=== PATIENT | male | born 1965 ===

== ENCOUNTER 2017-05-30 14:55 | Inpatient (IN) | payer OTHER ==
[2017-05-30 15:08] VITALS: BMI 36.1
[2017-05-30] MEDS ORDERED: Sodium Chloride 0.9% 1,000 ML IV STA (15:14)
--- NOTE | 2017-05-30 15:35 | ED PDOC ---
Arrival/HPI - General Chief Complaint: Abdominal Pain Time Seen by Provider: 05/30/17 15:14 Historian: Patient - History of Present Illness Narrative History of Present Illness (Text): 05/30/17 15:32 51-year-old male present sudden onset of sharp Stabbing left-sided abdominal pain radiating to the back. Patient states the pain started at 9 AM is associated with nausea no vomiting. Denies diarrhea. Denies urinary symptoms. No medications have been taken for pain at home. Patient states he has a history of diverticulitis but symptoms are different than his prior flares. Patient denies diarrhea or constipation. Denies fevers or chills. No chest pain or shortness of breath. No other complaints Time/Duration: Other (9am) Symptom Onset: Sudden Symptom Course: Unchanged Quality: Stabbing Severity Level: Moderate Past Medical History - Provider Review Nursing Documentation Reviewed: Yes - Travel History Have you recently traveled outside [place] w/in the past 3 mons?: No - Infectious Disease Hx of Infectious Diseases: None - Tetanus Immunization Tetanus Immunization: Unknown - Cardiac Hx Cardiac Disorders: Yes - Pulmonary Hx Respiratory Disorders: Yes Hx Chronic Obstructive Pulmonary Disease (COPD): Yes - Neurological Hx Neurological Disorder: No - HEENT Hx HEENT Disorder: Yes Other/Comment: glasses - Renal Hx Renal Disorder: No - Endocrine/Metabolic Hx Endocrine Disorders: No - Hematological/Oncological Hx Blood Disorders: No - Integumentary Hx Dermatological Disorder: Yes Hx Psoriasis: Yes (buttocks) - Musculoskeletal/Rheumatological Hx Musculoskeletal Disorders: No - Gastrointestinal Hx Gastrointestinal Disorders: Yes Hx Diverticulitis: Yes - Genitourinary/Gynecological Hx Genitourinary Disorders: No - Psychiatric Hx Psychophysiologic Disorder: No Hx Substance Use: No - Surgical History Other/Comment: R leg surgery with screws and rods placed - Anesthesia Hx Anesthesia: Yes Hx Anesthesia Reactions: No Family/Social History - Physician Review Nursing Documentation Reviewed: Yes Family/Social History: Unknown Family HX Smoking Status: Heavy Smoker > 10 Cigarettes Daily Hx Alcohol Use: Yes Frequency of alcohol use: Socially Hx Substance Use: No Allergies/Home Meds Allergies/Adverse Reactions: Allergies No Known Allergies Allergy (Verified 05/30/17 15:07) Home Medications: Home Meds Medication Instructions Recorded Confirmed Atorvastatin [Lipitor] 20 mg PO DAILY 05/30/17 05/30/17 Budesonide/Formoterol Fumarate 1 puff IH DAILY 05/30/17 05/30/17 [Symbicort 160-4.5 Mcg Inhaler] Calcipotriene/Betamethasone 1 appful TD DAILY 05/30/17 05/30/17 [Taclonex Ointment] Finasteride [Propecia] 1 mg PO DAILY 05/30/17 05/30/17 Fluticasone Nasal [Flonase] 1 spray NS DAILY 05/30/17 05/30/17 Montelukast [Singulair] 10 mg PO DAILY 05/30/17 05/30/17 Omeprazole Magnesium [Prilosec Otc] 20 mg PO DAILY 05/30/17 05/30/17 Tacrolimus [Protopic] 1 appful TD BID 05/30/17 05/30/17 Triamcinolone Acetonide 0.1% 1 appful TD BID 05/30/17 05/30/17 [Kenalog 0.1% CREAM] Review of Systems - Review of Systems Constitutional: absent: Fatigue, Fevers Respiratory: absent: SOB, Cough Cardiovascular: absent: Chest Pain, Palpitations Gastrointestinal: Abdominal Pain, Nausea. absent: Constipation, Diarrhea, Vomiting Genitourinary Male: absent: Dysuria, Frequency, Hematuria, Urinary Output Changes Musculoskeletal: Back Pain. absent: Arthralgias, Neck Pain Skin: absent: Rash, Pruritis Neurological: absent: Headache, Dizziness Psychiatric: absent: Anxiety, Depression Physical Exam Vital Signs Reviewed: Yes Vital Signs Temp Pulse Resp BP Pulse Ox 05/30/17 18:20 79 18 142/79 97 05/30/17 17:30 81 19 144/87 97 05/30/17 17:00 79 18 142/91 H 100 05/30/17 15:14 98.0 F 81 18 146/100 H 100 Temperature: Afebrile Blood Pressure: Hypertensive Pulse: Regular Respiratory Rate: Normal Appearance: Positive for: Well-Appearing, Non-Toxic, Comfortable Pain Distress: None Mental Status: Positive for: Alert and Oriented X 3 - Systems Exam Head: Present: Atraumatic Neck: Present: Normal Range of Motion Respiratory/Chest: Present: Clear to Auscultation, Good Air Exchange. No: Respiratory Distress, Accessory Muscle Use Cardiovascular: Present: Regular Rate and Rhythm. No: Tachycardic Abdomen: Present: Tenderness (+ left sided llq tenderness. ), Normal Bowel Sounds. No: Distention, Rebound, Guarding Back: Present: Normal Inspection. No: CVA Tenderness, Midline Tenderness, Paraspinal Tenderness Upper Extremity: Present: Normal ROM Lower Extremity: Present: Normal ROM Neurological: Present: GCS=15, Speech Normal Skin: Present: Warm, Dry, Normal Color. No: Rashes Psychiatric: Present: Alert, Oriented x 3 Medical Decision Making ED Course and Treatment: 05/30/17 15:34 Patient is nontoxic well appearing with stable vital signs presenting with left sided abdominal pain and back pain. CBC: wnl CMP: elevated lfts Lipase: wnl Urinalysis: + blood Patient reassessment: after toradol patient feeling slightly better; CAT scan: FINDINGS: LOWER THORAX: No visible consolidation, pleural effusion, or pneumothorax. Punctate calcified granulomas, right lower lobe. Partially imaged small pericardial effusion. Moderate-sized hiatal hernia. LIVER: Hypoattenuation of the liver compatible with hepatic steatosis. Borderline hepatomegaly. GALLBLADDER AND BILE DUCTS: Unremarkable. PANCREAS: Fatty atrophy of the pancreas. SPLEEN: Unremarkable. ADRENALS: Unremarkable. KIDNEYS AND URETERS: 6 mm left renal calculus with mild fullness of the left renal collecting system. The kidneys enhance symmetrically. VASCULATURE: No aortic aneurysm. BOWEL: Stomach is nondistended. Lack of oral contrast limits evaluation for bowel pathology. Bowel loops appear within normal limits of caliber without evidence of obstruction. Diverticulosis with associated wall thickening of the rectosigmoid colon, may reflect diverticulitis. APPENDIX: The appendix appears within normal limits of caliber. No secondary signs of acute appendicitis. PERITONEUM: No significant free fluid. No definite free air. LYMPH NODES: No bulky adenopathy identified. BLADDER: Unremarkable. REPRODUCTIVE: Unremarkable. BONES: Degenerative changes. Vacuum disc phenomenon at L5-S1. OTHER FINDINGS: 2.2 cm fat containing umbilical hernia. IMPRESSION: Diverticulosis with associated wall thickening of the rectosigmoid colon, may reflect diverticulitis. 6 mm left renal calculus with mild fullness of the left renal collecting system. Hypoattenuation of the liver compatible with hepatic steatosis. Borderline hepatomegaly. Partially imaged small pericardial effusion. Moderate-sized hiatal hernia. Fat containing umbilical hernia. pt reassessment; pain returned; morphine given. Discussed all results with patient in depth cipro and flagyl started iV. case discussed with dr. Villegas; accepts admission to med/surg for diverticulitis with intractable pain. case discussed with biomedical repair technician dr. greenwood. Impression: diverticulitis, abdominal pain, kidney stone admit to med/surg - Lab Interpretations Lab Results: 05/30/17 16:10 05/30/17 16:10 Lab Results 05/30/17 17:12: Urine Color Yellow, Urine Appearance Slight-cloudy, Urine pH 6.0 , Ur Specific Blanca 1.020, Urine Protein Trace H, Urine Glucose (UA) Negative , Urine Ketones Negative, Urine Blood Large H, Urine Nitrate Negative, Urine Bilirubin Negative, Urine Urobilinogen 0.2, Ur Leukocyte Esterase Negative, Urine RBC 10 - 15, Urine WBC 0 - 2, Ur Epithelial Cells 0 - 2, Urine Bacteria Few 05/30/17 16:10: WBC 10.3, RBC 5.30, Hgb 17.1, Hct 47.6, MCV 89.8, MCH 32.3, MCHC 35.9, RDW 13.0, Plt Count 217, MPV 10.2, Gran % 79.7 H, Lymph % (Auto) 15.0 L, Edgar % (Auto) 4.5, Eos % (Auto) 0.6 L, Baso % (Auto) 0.2, Gran # 8.22 H , Lymph # 1.5, Edgar # 0.5, Eos # 0.1, Baso # 0.02 05/30/17 16:10: Sodium 142, Potassium 4.5, Chloride 106, Carbon Dioxide 25, Anion Gap 16, BUN 17, Creatinine 1.1, Est GFR ( Amer) > 60, Est GFR (Non- Af Amer) > 60, Random Glucose 107, Calcium 10.7 H, Total Bilirubin 1.0, AST 87 H , ALT 171 H, Alkaline Phosphatase 108, Total Protein 7.6, Albumin 4.6, Globulin 3.0, Albumin/Globulin Ratio 1.5, Lipase 87 - RAD Interpretation Radiology Orders: 05/30/17 16:00 ABD & PELVIS IV CONTRAST ONLY [CT] Stat 05/30/17 16:36 CHEST PORTABLE [RAD] Stat - Medication Orders Current Medication Orders: Heparin Sodium (Porcine) (Heparin) 5,000 units SC Q8H STEVE PRN Reason: Protocol Hydromorphone HCl (Dilaudid) 0.5 mg IVP Q4H PRN PRN Reason: Pain, moderate (4-7) Ciprofloxacin (Cipro 400mg/200ml Dsw) 400 mg in 200 mls @ 133.3 mls/hr IVPB STAT STA PRN Reason: Protocol Stop: 05/30/17 19:40 Metronidazole (Flagyl) 500 mg in 100 mls @ 100 mls/hr IVPB Q8 STEVE PRN Reason: Protocol Cefepime HCl 0.5 gm/ Sodium (Chloride) 100 mls @ 100 mls/hr IVPB Q8H STEVE PRN Reason: Protocol Stop: 06/02/17 19:59 Sodium Chloride (Sodium Chloride 0.9%) 1,000 mls @ 100 mls/hr IV .Q10H STEVE Stop: 06/03/17 22:59 Levalbuterol HCl (Xopenex) 0.63 mg IH [id number] STEVE Ondansetron HCl (Zofran Inj) 4 mg IVP Q4H PRN PRN Reason: Nausea/Vomiting Pantoprazole Sodium (Protonix Inj) 40 mg IVP DAILY STEVE Discontinued Medications Sodium Chloride (Sodium Chloride 0.9%) 1,000 mls @ 999 mls/hr IV .Q1H1M STA Stop: 05/30/17 16:14 Last Admin: 05/30/17 16:16 Dose: 999 mls/hr eMAR Start Stop Document 05/30/17 16:16 OCS (Rec: 05/30/17 16:16 [id number]) Intravenous Solution Start Date 05/30/17 Start Time 16:16 Metronidazole (Flagyl) 500 mg in 100 mls @ 100 mls/hr IVPB STAT STA PRN Reason: Protocol Stop: 05/30/17 19:10 Last Admin: 05/30/17 18:41 Dose: 100 mls/hr eMAR Start Stop Document 05/30/17 18:41 OCS (Rec: 05/30/17 18:41 [id number]) Intravenous Solution Start Date 05/30/17 Start Time 18:41 Ketorolac Tromethamine (Toradol) 30 mg IVP STAT STA Stop: 05/30/17 15:15 Last Admin: 05/30/17 16:16 Dose: 30 mg MAR Pain Assessment Document 05/30/17 16:16 OCS (Rec: 05/30/17 16:17 [id number]) Pain Reassessment Is this a pain reassessment? Yes Sleep Is patient sleeping during reassessment? No Presence of Pain Presence of Pain Yes Pain Scale Used Pain Scale Used Numeric Location Left, Right or Bilateral Left Upper or Lower Lower Pain Location Body Site Abdomen Description Description Constant Intensity of Pain at present 10 Pain Behavior Moaning Guarding Irritability Aggravating Factors ADL's IVP Administration Document 05/30/17 16:16 OCS (Rec: 05/30/17 16:17 [id number]) Charges for Administration # of IVP Administrations 1 Re-Assess: MAR Pain Assessment Document 05/30/17 17:16 OCS (Rec: 05/30/17 17:30 [id number]) Pain Reassessment Is this a pain reassessment? Yes Sleep Is patient sleeping during reassessment? No Presence of Pain Presence of Pain No Morphine Sulfate (Morphine) 4 mg IVP STAT STA Stop: 05/30/17 16:37 Last Admin: 05/30/17 17:29 Dose: 4 mg MAR Pain Assessment Document 05/30/17 17:29 OCS (Rec: 05/30/17 17:[id number]) Pain Reassessment Is this a pain reassessment? Yes Sleep Is patient sleeping during reassessment? No Pain Scale Used Pain Scale Used Numeric Location Left, Right or Bilateral Left Upper or Lower Lower Pain Location Body Site Abdomen Description Description Constant Intensity of Pain at present 10 Pain Behavior Moaning Guarding Irritability IVP Administration Document 05/30/17 17:29 OCS (Rec: 05/30/17 17:30 [id number]) Charges for Administration # of IVP Administrations 1 Morphine Sulfate (Morphine) 4 mg IVP STAT STA Stop: 05/30/17 18:11 Last Admin: 05/30/17 18:41 Dose: 4 mg MAR Pain Assessment Document 05/30/17 18:41 OCS (Rec: 05/30/17 18:[id number]) Pain Reassessment Is this a pain reassessment? Yes Sleep Is patient sleeping during reassessment? No Presence of Pain Presence of Pain Yes Pain Scale Used Pain Scale Used Numeric Location Left, Right or Bilateral Left Upper or Lower Lower Pain Location Body Site Abdomen Description Description Constant Intensity of Pain at present 10 IVP Administration Document 05/30/17 18:41 OCS (Rec: 05/30/17 18:41 OCS [facility] [id number]) Charges for Administration # of IVP Administrations 1 Ondansetron HCl (Zofran Inj) 4 mg IVP STAT STA Stop: 05/30/17 15:15 Last Admin: 05/30/17 16:17 Dose: 4 mg IVP Administration Document 05/30/17 16:17 OCS (Rec: 05/30/17 16:17 OCS [facility] [id number]) Charges for Administration # of IVP Administrations 1 Disposition/Present on Arrival - Present on Arrival Any Indicators Present on Arrival: No History of DVT/PE: No History of Uncontrolled Diabetes: No Urinary Catheter: No History of Decub. Ulcer: No History Surgical Site Infection Following: None - Disposition Have Diagnosis and Disposition been Completed?: Yes Diagnosis: Diverticulitis, Kidney stone, Elevated LFTs, Intractable abdominal pain Disposition: HOSPITALIZED Disposition Time: 18:34 Patient Plan: Admission Condition: FAIR
[2017-05-30 16:19] LABS: BASO # 0.02 K/mm3 (0.0-2.0); BASO % 0.2 % (0.0-3.0); EOS # 0.1 (0.0-0.7); EOS % 0.6 % (1.5-5.0); GRAN # 8.22 (1.4-6.5); GRAN % 79.7 % (50.0-68.0); HEMATOCRIT 47.6 % (42.0-52.0); LYMPH # 1.5 (1.2-3.4); MEAN CELL VOLUME 89.8 fl (80.0-105.0); MEAN CORPUSCULAR HEMOGLOBIN 32.3 pg (25.0-35.0); MEAN CORPUSCULAR HGB CONC 35.9 g/dl (31.0-37.0); MEAN PLATELET VOLUME 10.2 fl (7.0-11.0); MONO # 0.5 (0.1-0.6); MONO % 4.5 % (1.0-6.0); WHITE BLOOD COUNT 10.3 10^3/ul (4.5-11.0)
[2017-05-30 16:29] LABS: ALB/GLOB RATIO 1.5 (1.1-1.8); ALKALINE PHOSPHATASE 108 U/L (38-126); ALT/SGPT 171 U/L (7-56); AST/SGOT 87 U/L (17-59); BLOOD UREA NITROGEN 17 mg/dL (7-21); CALCIUM 10.7 mg/dL (8.4-10.5); CARBON DIOXIDE 25 mmol/L (21-33); CHLORIDE 106 mmol/L (98-107); GFR AFRICAN-AMERICAN > 60; GLUCOSE,RANDOM 107 mg/dL (70-110); LIPASE 87 U/L (23-300); POTASSIUM 4.5 mmol/L (3.6-5.0); SODIUM 142 mmol/L (132-148); TOTAL PROTEIN 7.6 g/dL (5.8-8.3)
[2017-05-30] MEDS ORDERED: Morphine 4 mg/ml ISec IVP STA ×2 (16:36→18:10)
--- NOTE | 2017-05-30 17:05 | RAD ---
HISTORY: abd pain COMPARISON: None available. TECHNIQUE: Chest, one view. FINDINGS: Examination limited by habitus. LUNGS: No focal consolidation. PLEURA: Probable trace fluid within the right fissure. No significant pleural effusion. No definite pneumothorax . CARDIOVASCULAR: Heart size appears top normal. OSSEOUS STRUCTURES: No acute osseous abnormality identified. VISUALIZED UPPER ABDOMEN: Unremarkable. OTHER FINDINGS: None. IMPRESSION: Probable trace fluid within the right fissure.
[2017-05-30] MEDS ORDERED: Iohexol 350 MG/100 ML VIAL ONE (17:07)
[2017-05-30 17:25] LABS: URINE BILIRUBIN NEGATIVE (NEGATIVE); URINE BLOOD LARGE (NEGATIVE); URINE GLUCOSE (UA) NEGATIVE (NEGATIVE); URINE KETONE NEGATIVE (NEGATIVE); URINE LEUKOCYTE ESTERASE NEGATIVE Leu/uL (NEGATIVE); URINE PROTEIN TRACE mg/dL (<30 mg/dL); URINE UROBILINOGEN 0.2 E.U./dL (<1 E.U./dL)
[2017-05-30 17:34] LABS: URINE APPEARANCE SLIGHT-CLOUDY (CLEAR); URINE COLOR YELLOW (YELLOW)
--- NOTE | 2017-05-30 17:43 | CT ---
PROCEDURE: CT Abdomen and Pelvis with contrast HISTORY: llq abd pain COMPARISON: None available. TECHNIQUE: Contrast dose: 100 mL Omnipaque 350 Radiation dose: Total exam DLP = 1113.86 mGy-cm. This CT exam was performed using one or more of the following dose reduction techniques: Automated exposure control, adjustment of the mA and/or kV according to patient size, and/or use of iterative reconstruction technique. FINDINGS: LOWER THORAX: No visible consolidation, pleural effusion, or pneumothorax. Punctate calcified granulomas, right lower lobe. Partially imaged small pericardial effusion. Moderate-sized hiatal hernia. LIVER: Hypoattenuation of the liver compatible with hepatic steatosis. Borderline hepatomegaly. GALLBLADDER AND BILE DUCTS: Unremarkable. PANCREAS: Fatty atrophy of the pancreas. SPLEEN: Unremarkable. ADRENALS: Unremarkable. KIDNEYS AND URETERS: 6 mm left renal calculus with mild fullness of the left renal collecting system. The kidneys enhance symmetrically. VASCULATURE: No aortic aneurysm. BOWEL: Stomach is nondistended. Lack of oral contrast limits evaluation for bowel pathology. Bowel loops appear within normal limits of caliber without evidence of obstruction. Diverticulosis with associated wall thickening of the rectosigmoid colon, may reflect diverticulitis. APPENDIX: The appendix appears within normal limits of caliber. No secondary signs of acute appendicitis. PERITONEUM: No significant free fluid. No definite free air. LYMPH NODES: No bulky adenopathy identified. BLADDER: Unremarkable. REPRODUCTIVE: Unremarkable. BONES: Degenerative changes. Vacuum disc phenomenon at L5-S1. OTHER FINDINGS: 2.2 cm fat containing umbilical hernia. IMPRESSION: Diverticulosis with associated wall thickening of the rectosigmoid colon, may reflect diverticulitis. 6 mm left renal calculus with mild fullness of the left renal collecting system. Hypoattenuation of the liver compatible with hepatic steatosis. Borderline hepatomegaly. Partially imaged small pericardial effusion. Moderate-sized hiatal hernia. Fat containing umbilical hernia.
[2017-05-30 17:46] LABS: URINE EPITHELIAL CELLS 0 - 2 /hpf (0-5); URINE WBC 0 - 2 /hpf (0-6)
[2017-05-30 17:47] LABS: URINE BACTERIA FEW (NEG)
[2017-05-30] MEDS ORDERED: Ciprofloxacin 400mg/200ml D5W 400 MG/200 ML BAG IVPB STA (18:10)
[2017-05-30] MEDS ORDERED: metroNIDAZOLE IV 500 mg/100 ml 500 MG/100 ML BAG IVPB STA (18:11)
[2017-05-30] MEDS ORDERED: HYDROmorphone 0.5 mg/0.5 ml ISec IVP PRN (18:58)
[2017-05-30] MEDS ORDERED: Sodium Chloride 0.9% 1,000 ML IV SCH (19:00)
[2017-05-30 19:46] LABS: INR 1.04 (0.93-1.08); PARTIAL THROMBOPLASTIN TIME 28.4 Seconds (23.7-30.8)
[2017-05-30] MEDS ORDERED: Pneumococcal 23-Valent Vaccine IM ONE (19:49)
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
[2017-05-30] MEDS: Levalbuterol 0.63 MG/3 ML Inhal Soln UD IH SCH (20:55)
--- NOTE | 2017-05-30 21:42 | CP.PCM.CON ---
Addendum entered and electronically signed by Antonio Leija DO 05/30/17 22:54: Case DW Dr. Nunez Original Note: <Antonio Leija - Last Filed: 05/30/17 21:35> History of Present Illness - History of Present Illness History of Present Illness: Surgery 51M ho diverticulitis, diverticulosis came with LLQ pain started this AM. Pain is sudden and sharp. Intermittent. Located on LLQ and L back. c/o Nausea. Denies F/V/D/CP/SOB/hematuria/hematemesis/hematochezia/CP/SOB. This is second time having diverticulitis. Pain is currently controlled. Labs are wnl. CT showed sigmoid diverticulitis. Surgery is consulted to evaluate for diverticulitis. PMH: Asthma, HLD, Diverticulitis, diverticulosis Review of Systems - Review of Systems Review of Systems: See HPI Past Patient History - Infectious Disease Hx of Infectious Diseases: None - Tetanus Immunizations Tetanus Immunization: Unknown - Past Social History Smoking Status: Heavy Smoker > 10 Cigarettes Daily - CARDIAC Hx Cardiac Disorders: Yes Hx Hypercholesterolemia: Yes - PULMONARY Hx Respiratory Disorders: Yes Hx Asthma: Yes Hx Chronic Obstructive Pulmonary Disease (COPD): (pt denies) - NEUROLOGICAL Hx Neurological Disorder: No - HEENT Hx HEENT Problems: Yes Other/Comment: glasses - RENAL Hx Chronic Kidney Disease: No - ENDOCRINE/METABOLIC Hx Endocrine Disorders: No - HEMATOLOGICAL/ONCOLOGICAL Hx Blood Disorders: No - INTEGUMENTARY Hx Dermatological Problems: Yes Hx Psoriasis: Yes (buttocks, behind both ears, calves) Other/Comment: dry patches of skin to calves, behind ears, and buttocks from psoriasis, tatoo upper left arm - MUSCULOSKELETAL/RHEUMATOLOGICAL Hx Musculoskeletal Disorders: No Hx Falls: Yes (slipped on steps in snowstorm 5 yrs ago) - GASTROINTESTINAL Hx Gastrointestinal Disorders: Yes (obese) Hx Diverticulitis: Yes Hx Gastroesophageal Reflux: Yes - GENITOURINARY/GYNECOLOGICAL Hx Genitourinary Disorders: No - PSYCHIATRIC Hx Anxiety: Yes Hx Depression: Yes - SURGICAL HISTORY Other/Comment: pt fell down steps in snowstorm fx r leg, tibia, fibula, ankle, has 19 screws and 2 rods, 5 yrs ago - ANESTHESIA Hx Anesthesia: Yes Hx Anesthesia Reactions: No Meds Allergies/Adverse Reactions: Allergies Allergy/AdvReac Type Severity Reaction Status Date / Time No Known Allergies Allergy Verified 05/30/17 15:07 - Medications Medications: Current Medications Heparin Sodium (Porcine) (Heparin) 5,000 units SC Q8H STEVE PRN Reason: Protocol Last Admin: 05/30/17 19:42 Dose: 5,000 units Hydromorphone HCl (Dilaudid) 0.5 mg IVP Q4H PRN PRN Reason: Pain, moderate (4-7) Metronidazole (Flagyl) 500 mg in 100 mls @ 100 mls/hr IVPB Q8 STEVE PRN Reason: Protocol Cefepime HCl 0.5 gm/ Sodium (Chloride) 100 mls @ 100 mls/hr IVPB Q8H STEVE PRN Reason: Protocol Stop: 06/02/17 19:59 Sodium Chloride (Sodium Chloride 0.9%) 1,000 mls @ 100 mls/hr IV .Q10H [facility] Stop: 06/03/17 22:59 Last Admin: 05/30/17 19:42 Dose: 100 mls/hr Levalbuterol HCl (Xopenex) 0.63 mg IH [id number] [facility] Last Admin: 05/30/17 20:55 Dose: 0.63 mg Nicotine (Nicoderm Cq) 1 patch TD DAILY [facility] Ondansetron HCl (Zofran Inj) 4 mg IVP Q4H PRN PRN Reason: Nausea/Vomiting Pantoprazole Sodium (Protonix Inj) 40 mg IVP DAILY [facility] Physical Exam - Constitutional Appears: No Acute Distress - Head Exam Head Exam: ATRAUMATIC, NORMAL INSPECTION, NORMOCEPHALIC - Eye Exam Eye Exam: EOMI, Normal appearance, PERRL Pupil Exam: NORMAL ACCOMODATION, PERRL - ENT Exam ENT Exam: Mucous Membranes Moist, Normal Exam - Neck Exam Neck exam: Positive for: Normal Inspection - Respiratory Exam Respiratory Exam: Clear to Auscultation Bilateral, NORMAL BREATHING PATTERN - Cardiovascular Exam Cardiovascular Exam: REGULAR RHYTHM - GI/Abdominal Exam GI & Abdominal Exam: Normal Bowel Sounds, Soft. absent: Distended, Firm, Guarding, Rigid, Tenderness - Extremities Exam Extremities exam: Positive for: full ROM, normal inspection - Back Exam Back exam: NORMAL INSPECTION - Neurological Exam Neurological exam: Alert, CN II-XII Intact, Normal Gait, Oriented x3, Reflexes Normal - Psychiatric Exam Psychiatric exam: Normal Affect, Normal Mood - Skin Skin Exam: Dry, Intact, Normal Color, Warm Results - Vital Signs Recent Vital Signs: Last Vital Signs Temp 98 F 05/30/17 19:35 Pulse 18 L 05/30/17 19:35 Resp 18 05/30/17 19:35 BP 142/79 05/30/17 19:35 Pulse Ox 97 05/30/17 18:20 - Labs Result Diagrams: 05/30/17 16:10 05/30/17 16:10 Assessment & Plan - Assessment and Plan (Free Text) Assessment: 51 M w Diverticulitis -Conservative management -IV ABX -Diet per primary -Pain /nausea control -DVT/GI PPX -GI rec Will DW Dr. Vinson covering for Dr. Nunez <Ky Nunez - Last Filed: 05/31/17 06:15> Meds - Medications Medications: Current Medications Heparin Sodium (Porcine) (Heparin) 5,000 units SC Q8 STEVE PRN Reason: Protocol Last Admin: 05/31/17 05:46 Dose: 5,000 units Hydromorphone HCl (Dilaudid) 0.5 mg IVP Q4H PRN PRN Reason: Pain, moderate (4-7) Metronidazole (Flagyl) 500 mg in 100 mls @ 100 mls/hr IVPB Q8 STEVE PRN Reason: Protocol Last Admin: 05/31/17 05:49 Dose: 100 mls/hr Cefepime HCl 0.5 gm/ Sodium (Chloride) 100 mls @ 100 mls/hr IVPB Q8H STEVE PRN Reason: Protocol Stop: 06/02/17 19:59 Last Admin: 05/30/17 21:56 Dose: 100 mls/hr Sodium Chloride (Sodium Chloride 0.9%) 1,000 mls @ 125 mls/hr IV .Q8H [facility] Stop: 06/03/17 02:59 Levalbuterol HCl (Xopenex) 0.63 mg IH [id number] [facility] Last Admin: 05/31/17 02:32 Dose: 0.63 mg Nicotine (Nicoderm Cq) 1 patch TD DAILY [facility] Last Admin: 05/30/17 21:30 Dose: Not Given Ondansetron HCl (Zofran Inj) 4 mg IVP Q4H PRN PRN Reason: Nausea/Vomiting Pantoprazole Sodium (Protonix Inj) 40 mg IVP DAILY [facility] Results - Vital Signs Recent Vital Signs: Last Vital Signs Temp 98 F 05/30/17 19:35 Pulse 80 05/30/17 21:00 Resp 18 05/30/17 19:35 BP 142/79 05/30/17 19:35 Pulse Ox 97 05/30/17 18:20 - Labs Result Diagrams: 05/30/17 16:10 05/30/17 16:10 Assessment & Plan - Assessment and Plan (Free Text) Assessment: Dx Left lower quadrant abdominal pain in a setting of: =Recurring rectosigmoid diverticulitis =Left nephrolithiasis(+hematuria) =Elevated LFT(?etiology) =Psoriasis =Asthma =? HIV Risk =Lumbar radiculopathy(?significant now) Surgery is not recommended now due to lack of abdominal tenderness/lack of pain on defecation A bowel preparation would be necessary(Cl liquids now) Colonoscopy may be needed vs Barium Enema Excellent work up plan has been initiated-we will follow closely with you Carri Nunez MD FACS
[2017-05-30] MEDS: Cefepime 0.5 GM in Sodium Chloride 0.9% 100 ML IVPB SCH (21:56)
--- NOTE | 2017-05-30 22:55 | CP.PCM.PCO ---
Physician Communication Note - Physician Communication Note Physician Communication Note: Dx Acute Diverticulitis/No surgery immediately now
--- NOTE | 2017-05-31 01:49 | HP ---
HISTORY OF PRESENT ILLNESS: The patient is a 51-year-old obese male presented to the emergency room with complaints of left flank, left paraumbilical and left lower quadrant pain which started at 9:00 a.m. this morning radiating around to the left lateral abdomen area to the back area. Pain described as very moderate to severe. The patient stated that the symptoms started around 9 o'clock this morning. The patient had a sort of soft bowel movement this morning with the pain, but no diarrhea was noted. No rectal bleeding noted. No nausea or vomiting noted. The patient's 13-system complaint was positive for above. CODE STATUS: Full code. LIVING WILL ADVANCE DIRECTIVE: None. ALLERGIES: NONE. Height is 5 feet 8 inches. Weight is 238. BMI is 36. HOME MEDICATIONS: 1. Kenalog cream. 2. Tacrolimus or Protopic ointment twice a day. 3. Prilosec 20 mg daily. 4. Singulair 10 mg daily. 5. Flonase 1 spray daily. 6. Propecia 1 mg daily. 7. Taclonex ointment. 8. Symbicort 164.5 daily. 9. Lipitor 20 mg daily. SOCIAL HISTORY: Positive for smoking. Positive for alcohol use. The patient smokes about half a pack to one pack per day. The patient denies any communicable transmissible disease. 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 FAMILY HISTORY: Not available. The patient is with family. PAST MEDICAL HISTORY: The patient denies any history of neurological disease or cardiac disease. The patient's past medical history is significant for diverticulitis, history of hair transplant, history of gastroesophageal reflux, history of questionable asthma, history of dyslipidemia, history of history of right ankle fracture and surgery in 2010, history of dyslipidemia, history of diverticulitis, history of right inguinal hernia repair, history of gastroesophageal reflux, history of questionable depression, anxiety and alcohol use. According to the [employer] history, history of asthma. The patient's past medical history is significant for right distal tibia-fibula fracture, history of right distal tibia-fibula surgery, history of psoriasis . The patient's past medical history is significant for right ankle fracture, history of gait dysfunction, history of open reduction and internal fixation of the right ankle fracture surgery. History of open reduction and internal fixation of the right distal tibia-fibula fracture, and history of degenerative joint disease of the lumbar spine. PHYSICAL EXAMINATION: GENERAL: The patient is seen lying in stretcher number 17. The patient is lying comfortable in the bed. VITAL SIGNS: T-max is 98,2 degrees Fahrenheit, heart rate is 79 to 81, blood pressure of 146/100, 142/91, 144/87 and 142/79, respirations of 18, and O2 saturation of 97% to 100%. HEENT: Head examination normocephalic and atraumatic. HEENT examination shows pinkish conjunctivae. Anicteric sclerae and dry oral mucosa. No neck rigidity. No oropharyngeal lesion. NECK: No neck rigidity. CHEST: Examination reveals kyphosis. LUNGS: Examination shows no rales, crackles or wheezing. Occasional rhonchi upper lung celaya. CARDIOVASCULAR: Examination shows S1 and S2, regular rhythm. GASTROINTESTINAL: Abdomen is protuberant, distended, and soft. Positive periumbilical left lower quadrant deep tenderness. No rebound tenderness. No costovertebral angle tenderness. Questionable suprapubic tenderness. GENITALIA: Male. RECTAL: Examination is deferred. EXTREMITIES: Show no pitting one. No calf tenderness and no Homans' sign. Positive surgical scar of the right medial ankle noted. MUSCULOSKELETAL: Examination shows a body mass index of 36 with a body weight of 238 pounds. NEUROLOGIC: Neurologically, the patient is alert, awake, and oriented x3. Cranial nerves II through XII grossly intact and limited. Gait examination is not tested. VASCULAR: Examination shows palpable pulses. DIAGNOSTIC STUDIES: WBC of 10.3, hemoglobin and hematocrit of 17.1 and 47.6, and platelets of 217 with granulocytes 80% segs. PT and PTT is pending. Sodium of 42, potassium of 4.5, chloride of 106, CO2 of 25 anion gap of 16, BUN of 17, and creatinine of 1.1. GFR is greater than 60, glucose of 107, and calcium of 10.7. AST is 87, ALT is 171, alkaline phosphatase is 108, and lipase is 87. Urine pH is 6.00, specific gravity is 1.020, trace protein, large blood, and few bacteria. The patient's chest x-ray was done in the emergency room which shows trace fluid within the right fissure . CT scan of the abdomen was done with IV contrast only. Shows a moderate-sized hiatal hernia, hepatic steatosis with borderline hepatomegaly and right hepatic hyperattenuation of the liver, pancreatic fatty atrophia noticed, 6 mm left renal calculus with fullness of the left renal collecting system. Diverticulosis with wall thickening of the rectosigmoid reflecting right diverticulitis. Degenerative joint disease of the lumbar spine with umbilical hernia noted fat containing. The patient was seen by the physician assistant auto center manager in the emergency room. The patient was treated with IV fluids Zofran 4 mg and Toradol 30 mg IV. The patient was given morphine 4 mg x2 doses, Flagyl 500 IV and ciprofloxacin 400 mg was given but the patient persisted to have abdominal pain without much significant relief at that time, the physician assistant auto center manager made the decision to admit the patient. ASSESSMENT: A 51-year-old obese male with history of diverticulitis underwent colonoscopy many many years ago comes in with less than 24 hours complains of left lower quadrant, left flank, left periumbilical abdominal pain radiating to left lower quadrant and around the back. IMPRESSION AND PLAN 1. Acute rectosigmoid colonic diverticulitis and diverticulosis. 2. Moderate hiatal hernia. 3. Hepatic steatosis with hepatomegaly. 4. Pancreatic fatty atrophy. 5. A 6-mm left renal calculus with mild left renal collecting system fullness. 6. Questionable small pericardial effusion. 7. Rectosigmoid colon diverticulosis. 8. Degenerative joint disease of the lumbar spine. 9. Fat containing umbilical hernia. 10. Hepatic steatosis with hyperattenuation of the liver with borderline hepatomegaly. 11. Possible trace fluid in the right fissure of the lung. 12. Morbid obesity with elevated body mass index of 36. 13. Questionable hypertension, transient. 11. Granulocytosis. 12. Mild hypercalcemia. 13. Transaminitis. 14. Trace proteinuria, hematuria, and bacteriuria. 15. His history of psoriasis, history of hair transplant, history of gastroesophageal reflux, history of questionable asthma, history of nicotine dependence, and history of dyslipidemia. PLAN: 1. At this time, the patient was advised hospitalization by the physician assistant auto center manager. The patient has been ordered serial labs. The patient has been ordered hepatitis panel and PSA ordered. Blood cultures were drawn in the ER, consultation gastroenterology and surgery. 2. The patient will be started on Dilaudid 0.5 mg IV q. 4 hours. p.r.n., Flagyl 500 IV q. 8 hours, heparin 5000 subcutaneously q. 8 hours. for DVT prophylaxis, cefepime 500 mg IV q. 8 hours., nicotine patch 21 mg daily, Protonix 40 mg IV daily IV fluid 0.9 normal saline at 100 mL an hours, Xopenex nebulizer 0.63 mg every 6 hours, Zofran 4 mg IV q. 4 hours. p.r.n. Incentive spirometry ordered and EKG ordered. Echo with Doppler ordered for evaluation of possible pericardial effusion. The patient is started on liquid diet. The patient has been ordered out of bed, SCDs. 3. At present, the patient was seen in the emergency room in bed 17. The patient was explained his diagnostic test results and reason for hospitalization and his diagnoses were explained to the patient in the layman's language. All questions and concerned answered. The patient was also advised the need for further diagnostic therapeutic intervention and need for evaluation by gastroenterology and surgery was also explained to the patient at length and all questions concerned answered, which he acknowledged understood. At present, the patient is seen in the emergency room stretcher number 17. The patient is awaiting for bed assignment. Dictated and electronically signed, not read. Signing off Henri Villegas MD Henri Villegas MD
[2017-05-31] MEDS: Levalbuterol 0.63 MG/3 ML Inhal Soln UD IH SCH ×4 (02:32→21:57)
[2017-05-31] MEDS: metroNIDAZOLE IV 500 mg/100 ml 500 MG/100 ML BAG IVPB SCH ×3 (05:49→21:07)
[2017-05-31 06:05] LABS: BASO # 0.02 K/mm3 (0.0-2.0); BASO % 0.3 % (0.0-3.0); EOS # 0.1 (0.0-0.7); EOS % 1.9 % (1.5-5.0); GRAN # 3.87 (1.4-6.5); GRAN % 56.6 % (50.0-68.0); HEMATOCRIT 42.5 % (42.0-52.0); LYMPH # 2.3 (1.2-3.4); LYMPH % 34.3 % (22.0-35.0); MEAN CELL VOLUME 89.9 fl (80.0-105.0); MEAN CORPUSCULAR HEMOGLOBIN 31.1 pg (25.0-35.0); MEAN CORPUSCULAR HGB CONC 34.6 g/dl (31.0-37.0); MONO # 0.5 (0.1-0.6); MONO % 6.9 % (1.0-6.0); RED CELL DISTRIBUTION WIDTH 13.2 % (11.5-14.5); WHITE BLOOD COUNT 6.8 10^3/ul (4.5-11.0)
[2017-05-31 06:43] LABS: ALB/GLOB RATIO 1.5 (1.1-1.8); ALKALINE PHOSPHATASE 88 U/L (38-126); ALT/SGPT 118 U/L (7-56); AST/SGOT 54 U/L (17-59); BILIRUBIN,DIRECT 0.5 mg/dL (0.0-0.4); BLOOD UREA NITROGEN 14 mg/dL (7-21); CALCIUM 9.6 mg/dL (8.4-10.5); CARBON DIOXIDE 25 mmol/L (21-33); CHLORIDE 107 mmol/L (95-110); GFR AFRICAN-AMERICAN > 60; GLUCOSE,RANDOM 88 mg/dL (70-110); MAGNESIUM 1.9 mg/dL (1.7-2.2); POTASSIUM 3.7 mmol/L (3.6-5.0); SODIUM 141 mmol/L (132-148); TOTAL PROTEIN 6.2 g/dL (5.8-8.3)
[2017-05-31] MEDS: Cefepime 0.5 GM in Sodium Chloride 0.9% 100 ML IVPB SCH ×3 (06:51→21:09)
--- NOTE | 2017-05-31 07:41 | CP.PCM.PN ---
Objective - Vital Signs/Intake and Output Vital Signs (last 24 hours): Temp Pulse Resp BP Pulse Ox 98 F 80 18 142/79 97 05/30/17 19:35 05/30/17 21:00 05/30/17 19:35 05/30/17 19:35 05/30/17 18:20 Intake and Output: 05/31/17 05/31/17 06:59 18:59 Intake Total 240 Balance 240 - Medications Medications: Current Medications Heparin Sodium (Porcine) (Heparin) 5,000 units SC Q8 STEVE PRN Reason: Protocol Last Admin: 05/31/17 05:46 Dose: 5,000 units Hydromorphone HCl (Dilaudid) 0.5 mg IVP Q4H PRN PRN Reason: Pain, moderate (4-7) Metronidazole (Flagyl) 500 mg in 100 mls @ 100 mls/hr IVPB Q8 STEVE PRN Reason: Protocol Last Admin: 05/31/17 05:49 Dose: 100 mls/hr Cefepime HCl 0.5 gm/ Sodium (Chloride) 100 mls @ 100 mls/hr IVPB Q8H STEVE PRN Reason: Protocol Stop: 06/02/17 19:59 Last Admin: 05/31/17 06:51 Dose: 100 mls/hr Sodium Chloride (Sodium Chloride 0.9%) 1,000 mls @ 125 mls/hr IV .Q8H [facility] Stop: 06/03/17 02:59 Levalbuterol HCl (Xopenex) 0.63 mg IH [id number] [facility] Last Admin: 05/31/17 07:28 Dose: Not Given Nicotine (Nicoderm Cq) 1 patch TD DAILY [facility] Last Admin: 05/30/17 21:30 Dose: Not Given Ondansetron HCl (Zofran Inj) 4 mg IVP Q4H PRN PRN Reason: Nausea/Vomiting Pantoprazole Sodium (Protonix Inj) 40 mg IVP DAILY [facility] - Labs Labs: 05/31/17 05:30 05/31/17 05:30 PT 11.2 Seconds (9.9-11.8) 05/30/17 16:10 INR 1.04 (0.93-1.08) 05/30/17 16:10 APTT 28.4 Seconds (23.7-30.8) 05/30/17 16:10
--- NOTE | 2017-05-31 08:27 | US ---
HISTORY: transaminitis/??cholelithiasis COMPARISON: None. TECHNIQUE: Grayscale imaging was performed. FINDINGS: LIVER: Measures 21.1 cm. There is diffuse increased echogenicity of the liver parenchyma. No mass. No intrahepatic bile duct dilatation. GALLBLADDER: The gallbladder is well distended without gallstones, wall thickening or pericholecystic fluid. COMMON BILE DUCT: Measures 5.4 mm. No stones. No dilatation. PANCREAS: Obscured by bowel gas. RIGHT KIDNEY: Measures 13.5cm. Normal echogenicity. No calculus, mass, or hydronephrosis. LEFT KIDNEY: Measures 12.4cm. Normal echogenicity. No calculus, mass, or hydronephrosis. SPLEEN: There is mild splenomegaly. The spleen measures 13.8 cm AORTA: No aneurysmal dilatation. IVC: Unremarkable. OTHER FINDINGS: None. IMPRESSION: Mild hepatomegaly. Diffuse increased echogenicity in the liver may reflect hepatic steatosis however parenchymal infectious/ inflammatory etiologies cannot be entirely excluded. Clinical and laboratory correlation is advised. No cholelithiasis or biliary dilatation.
--- NOTE | 2017-05-31 08:37 | CP.PCM.PN ---
Subjective - Date & Time of Evaluation Date of Evaluation: 05/31/17 Time of Evaluation: 08:34 - Subjective Subjective: Surgery Progress Note for Dr. Nunez HPI: Patient seen and examined at bedside. Complaining of pain in his left abdomen and flank. No nausea or vomiting. No other complaints at this time. Denies chest pain, SOB, Fever, Chills. Objective - Vital Signs/Intake and Output Vital Signs (last 24 hours): Temp Pulse Resp BP Pulse Ox 98.8 F 71 18 128/77 97 05/31/17 07:55 05/31/17 07:55 05/31/17 07:55 05/31/17 07:55 05/31/17 07:55 Intake and Output: 05/31/17 05/31/17 06:59 18:59 Intake Total 240 Balance 240 - Medications Medications: Current Medications Heparin Sodium (Porcine) (Heparin) 5,000 units SC Q8 STEVE PRN Reason: Protocol Last Admin: 05/31/17 05:46 Dose: 5,000 units Hydromorphone HCl (Dilaudid) 0.5 mg IVP Q4H PRN PRN Reason: Pain, moderate (4-7) Metronidazole (Flagyl) 500 mg in 100 mls @ 100 mls/hr IVPB Q8 STEVE PRN Reason: Protocol Last Admin: 05/31/17 05:49 Dose: 100 mls/hr Cefepime HCl 0.5 gm/ Sodium (Chloride) 100 mls @ 100 mls/hr IVPB Q8H STEVE PRN Reason: Protocol Stop: 06/02/17 19:59 Last Admin: 05/31/17 06:51 Dose: 100 mls/hr Sodium Chloride (Sodium Chloride 0.9%) 1,000 mls @ 125 mls/hr IV .Q8H [facility]EV[facility] Stop: 06/03/17 02:59 Levalbuterol HCl (Xopenex) 0.63 mg IH [id number] [facility] Last Admin: 05/31/17 07:28 Dose: Not Given Nicotine (Nicoderm Cq) 1 patch TD DAILY [facility] Last Admin: 05/30/17 21:30 Dose: Not Given Ondansetron HCl (Zofran Inj) 4 mg IVP Q4H PRN PRN Reason: Nausea/Vomiting Pantoprazole Sodium (Protonix Inj) 40 mg IVP DAILY [facility] - Labs Labs: 05/31/17 05:30 05/31/17 05:30 PT 11.2 Seconds (9.9-11.8) 05/30/17 16:10 INR 1.04 (0.93-1.08) 05/30/17 16:10 APTT 28.4 Seconds (23.7-30.8) 05/30/17 16:10 - Constitutional Appears: Well, Non-toxic, No Acute Distress - Head Exam Head Exam: ATRAUMATIC, NORMAL INSPECTION, NORMOCEPHALIC - Eye Exam Eye Exam: EOMI Pupil Exam: NORMAL ACCOMODATION - ENT Exam ENT Exam: Mucous Membranes Moist - Respiratory Exam Respiratory Exam: Clear to Ausculation Bilateral, NORMAL BREATHING PATTERN - Cardiovascular Exam Cardiovascular Exam: REGULAR RHYTHM - GI/Abdominal Exam GI & Abdominal Exam: Soft, Tenderness (mild tenderness in all 4 quadrants). absent: Distended - Extremities Exam Extremities Exam: absent: Joint Swelling, Tenderness - Back Exam Back Exam: absent: CVA tenderness (L), CVA tenderness (R) - Neurological Exam Neurological Exam: Alert, Awake, Oriented x3 - Psychiatric Exam Psychiatric exam: Normal Affect, Normal Mood - Skin Skin Exam: Dry, Intact, Normal Color, Warm Assessment and Plan - Assessment and Plan (Free Text) Assessment: 51M w/ acute diverticulitis Plan: * continue antibiotic therapy * No surgical intervention needed at this time * continue full liquids * Further reccs per Dr. Enrique Rodriguez PGY1
[2017-05-31] MEDS: Sodium Chloride 0.9% 1,000 ML IV SCH ×2 (12:00→23:16)
--- NOTE | 2017-05-31 15:08 | PN ---
DATE: 05/31/2017 SUBJECTIVE: The patient is seen in room 373, bed 3. The patient was seen lying in the bed. The patient is complaining of abdominal pain. The patient has not asked for pain medications yet. Overnight nurses' notes were reviewed. OBJECTIVE: VITAL SIGNS: T-max 98.8, pulse 71, blood pressure 128/77, respirations 18, and O2 sat 97%. HEENT: Head examination normocephalic and atraumatic. HEENT examination shows pink conjunctivae, dry oral mucosa. NECK: No neck rigidity. CHEST: Symmetrical. LUNGS: Shows no rales, crackles, or wheezing. CARDIOVASCULAR: S1 and S2, regular rhythm. ABDOMEN: Protuberant and obese. Positive bowel sounds. Positive left periumbilical and left lower quadrant tenderness. No rebound tenderness noted. No costovertebral angle tenderness. GENITALIA: Male. RECTAL: Deferred. EXTREMITIES: Shows no pitting edema. No calf tenderness. No Homans' sign. Positive right medial ankle surgical scar noted. MUSCULOSKELETAL: Shows a body mass index of greater than 36. NEUROLOGIC: The patient is alert, awake, and oriented x3. Cranial nerves II through XII grossly intact. Gait examination is not tested, but the patient has been ambulatory according to the nurses. VASCULAR: Palpable pulses. DIAGNOSTIC DATA: On 05/31/2017; WBC 6.8, hemoglobin/hematocrit 14.7/42.5, and platelets 174. Granulocytes normal. PT/PTT 11.2 and 28.4. Sodium 141, potassium 3.7, chloride 107, CO2 of 25, anion gap 13, BUN 14, creatinine 1.0, GFR greater than 60, glucose 88, calcium 9.6, and magnesium is 1.9. AST is down to 54 from 87 and ALT is down to 118 from 171. Rest of the LFTs are normal. PSA is 1.6. Abdominal ultrasound shows liver size of 21 cm with diffuse increased echogenicity of the hepatic parenchyma with distended gallbladder without gallstones. Pancreas obscured by bowel gas. Mild splenomegaly.. EKG shows sinus rhythm, normal EKG. IMPRESSION AND PLAN: 1. Acute rectosigmoid diverticulosis and diverticulitis. 2. Abdominal pain secondary to above. 3. Granulocytosis. 4. Transaminitis. 5. Trace proteinuria, microscopic hematuria, and bacteriuria. 6. Hepatosplenomegaly with liver size of greater than 21 cm with diffuse increased echogenicity of the liver parenchyma. 7. Distended gallbladder without gallstones and without gallbladder wall thickening and without pericholecystic fluid. 8. Mild splenomegaly. 9. Hepatic steatosis with diffuse increased echogenicity of the liver. 10. Obesity with elevated body mass index of 34. 1. Acute rectosigmoid colonic diverticulitis and diverticulosis. 2. Moderate hiatal hernia. 3. Hepatic steatosis with hepatomegaly. 4. Pancreatic fatty atrophy. 5. A 6-mm left renal calculus with mild left renal collecting system fullness. 6. Questionable small pericardial effusion. 7. Rectosigmoid colon diverticulosis. 8. Degenerative joint disease of the lumbar spine. 9. Fat containing umbilical hernia. 10. Hepatic steatosis with hyperattenuation of the liver with borderline hepatomegaly. 11. Possible trace fluid in the right fissure of the lung. 12. Morbid obesity with elevated body mass index of 36. 13. Questionable hypertension, transient. 11. Granulocytosis. 12. Mild hypercalcemia. 13. Transaminitis. 14. Trace proteinuria, hematuria, and bacteriuria. 15. His history of psoriasis, history of hair transplant, history of gastroesophageal reflux, history of questionable asthma, history of nicotine dependence, and history of dyslipidemia. The patient seen by surgery resident and surgeons, Dr. Nunez recommendations noted.. The patient has been ordered hepatitis panel, results pending. Repeat CMP, LFT, magnesium, CBC ordered, and blood cultures ordered. Evaluation pending by Gastroenterology. CURRENT MEDICATIONS: Dilaudid 0.5 mg IV q.4 hours p.r.n., Flagyl 500 IV q.8 hours, heparin 5000 subcutaneously q.8 hours, cefepime 500 mg IV q.8 hours, nicotine patch 21 mg daily, Protonix 40 IV daily, IV fluid has been adjusted by the surgery Dr. Nunez at 0.9 normal saline at 125 mL an hour, Xopenex nebulizer 0.63 mg every 6 hours, Zofran 4 mg IV q. 4 hours, and incentive spirometry. Ordered echo with Doppler ordered. The patient is presently on liquid diet. The patient has been ordered out of bed. SCDs ordered. At present, the patient is to be continued on above therapeutic intervention, we are awaiting further evaluation by Gastroenterology and Surgery. The patient has been updated about his condition, diagnosis, treatment plan, management plan, need for further diagnostic therapeutic intervention explained to the patient at length. All questions concerned answered. The patient was also encouraged to be out of bed and ambulate. Dictated and electronically signed, not read. Henri Villegas MD MTDAmanda
--- NOTE | 2017-05-31 19:22 | CON ---
DATE: 05/31/2017 REQUESTING PHYSICIAN: Dr. Henri Villegas. REASON FOR CONSULTATION: I have been asked to see this 51-year-old male who comes to the hospital with a 1-day history of worsening left flank pain. He admits to some dark urine, but no hematuria. He denies any nausea, vomiting, fevers or chills. The patient states that he was diagnosed with diverticulitis approximately 2 years ago and this current pain is different from his diverticulitis pain of [address] scan of the abdomen and pelvis performed in the emergency room shows some sigmoid diverticulosis with some mild wall thickening but without any pericolonic inflammation. There is a stone noted in the left renal pelvis with fullness of the left renal pelvis. Again, he denies any fevers, chills or rectal bleeding. PAST MEDICAL HISTORY: Notable for diverticulitis, gastroesophageal reflux disease, hyperlipidemia, alopecia. PAST SURGICAL HISTORY: Notable for right leg surgery for tib-fib fracture and hair transplant. SOCIAL HISTORY: He smokes between half pack to a pack of cigarettes per day. He has done so for many years. He takes alcohol on a social basis. FAMILY HISTORY: Noncontributory. REVIEW OF SYSTEMS: Notable for left flank pain. PHYSICAL EXAMINATION: GENERAL: Obese male, lying in bed, appearing comfortable. VITAL SIGNS: Reveal a temperature of 98.8, blood pressure 128/77, heart rate of 71. HEENT: Reveal sclerae to be white. Conjunctivae pink. NECK: Supple. CHEST: Reveal lungs to be clear. HEART: Reveals regular rate and rhythm. ABDOMEN: Obese, soft, nontender. No mass. There is some mild left flank tenderness. EXTREMITIES: Show no edema. LABORATORY DATA: Reveal white blood cell count 6.8, hemoglobin 14.7. Chemistries reveal AST 54, ALT 118. Urinalysis is positive for large amount of blood with 10-15 RBC's. Urine nitrate is negative. Ultrasound of the abdomen shows hepatomegaly with echogenic liver suggestive of fatty liver. CT scan of the abdomen and pelvis reveal sigmoid diverticulosis with mild sigmoid wall thickening without any pericolonic inflammation, fluid collection or free air. CT also shows hepatomegaly with fatty liver. IMPRESSION: A 51-year-old male with 1 day of worsening left flank pain with microscopic hematuria. I suspect that this is renal colic and not diverticulitis. RECOMMENDATIONS: 1. Urology evaluation. 2. Slow diet advancement. Bobby Magana MD
--- NOTE | 2017-05-31 20:46 | CON ---
DATE: 05/31/2017 GENITOURINARY CONSULTATION CHIEF COMPLAINT: Left renal calculus, diverticulitis. HISTORY OF PRESENT ILLNESS: This a 51-year-old male who was admitted with left flank, left lower quadrant tenderness. He has had an episode of diverticulitis approximately 18 months earlier. He had a CAT scan done, which showed a left renal calculus and thickening of the colon. The calculus was not causing any hydronephrosis. I reviewed the films, it is in the left upper ranjith and a renal ultrasound also did not show any hydro. He currently is feeling better on IV antibiotics. He has no prior urologic history whatsoever. PAST MEDICAL HISTORY: Significant for history of having had NO ALLERGIES. His past medical history in addition to the history of diverticulitis is significant for history of dyslipidemia. He had a prior right inguinal hernia repair, history of asthma, and also history of psoriasis. MEDICATIONS: He at home takes Prilosec, Singulair, Propecia, Flonase, Symbicort, and Lipitor. SOCIAL HISTORY: He smokes and uses alcohol socially as well. He smokes half-a-pack to a pack a day. FAMILY HISTORY: Noncontributory. REVIEW OF SYMPTOMS: Currently, no symptoms referable to the head, eyes, ears, nose, or throat. No cardiac or respiratory symptoms. No GI symptoms at this time. No psychiatric, dermatologic symptoms. PHYSICAL EXAMINATION: VITAL SIGNS: Shows him to be afebrile, blood pressure 140/73, respirations 20, and pulse 90. HEENT: Normocephalic. Sclerae clear. Conjunctivae not injected. ABDOMEN: No CVA pain. No hepatosplenomegaly, rebound or guarding. There is no lower quadrant tenderness, rebound, or guarding at this time. SKIN: No peripheral edema. NEUROLOGIC: Well oriented x3. LAB WORK: Shows a creatinine of 1.0 with a BUN of 14. His white count is 6,800. His serologies are negative for hepatitis. His urine had 10 to 15 rbc's. I reviewed the CAT scan and the renal ultrasound. I do not feel this stone is significant. ASSESSMENT AND PLAN: In view of the hematuria, I am ordering a urine cytology on him. It is possible this could be due to the diverticulitis pressing on the bladder, but the patient will follow up with me as an outpatient in several weeks. A PSA is also being ordered. Alexander Puentes MD
[2017-06-01] MEDS: Cefepime 0.5 GM in Sodium Chloride 0.9% 100 ML IVPB SCH ×3 (02:40→19:00)
[2017-06-01] MEDS: Levalbuterol 0.63 MG/3 ML Inhal Soln UD IH SCH ×4 (03:10→22:32)
[2017-06-01] MEDS: metroNIDAZOLE IV 500 mg/100 ml 500 MG/100 ML BAG IVPB SCH ×4 (05:37→21:43)
[2017-06-01] MEDS: Sodium Chloride 0.9% 1,000 ML IV SCH ×3 (05:42→18:09)
[2017-06-01 06:58] LABS: BASO # 0.01 K/mm3 (0.0-2.0); BASO % 0.2 % (0.0-3.0); EOS # 0.2 (0.0-0.7); EOS % 3.1 % (1.5-5.0); GRAN # 2.6 (1.4-6.5); GRAN % 49.7 % (50.0-68.0); HEMATOCRIT 42.9 % (42.0-52.0); LYMPH % 39.1 % (22.0-35.0); MEAN CELL VOLUME 90.5 fl (80.0-105.0); MEAN CORPUSCULAR HEMOGLOBIN 30.8 pg (25.0-35.0); MEAN PLATELET VOLUME 10.4 fl (7.0-11.0); MONO # 0.4 (0.1-0.6); MONO % 7.9 % (1.0-6.0); RED CELL DISTRIBUTION WIDTH 13.2 % (11.5-14.5); WHITE BLOOD COUNT 5.2 10^3/ul (4.5-11.0)
[2017-06-01 07:27] LABS: ALB/GLOB RATIO 1.5 (1.1-1.8); ALKALINE PHOSPHATASE 88 U/L (38-126); ALT/SGPT 110 U/L (7-56); AST/SGOT 46 U/L (17-59); BILIRUBIN,DIRECT 0.3 mg/dL (0.0-0.4); BILIRUBIN,TOTAL 0.5 mg/dL (0.2-1.3); BLOOD UREA NITROGEN 11 mg/dL (7-21); CALCIUM 9.6 mg/dL (8.4-10.5); CARBON DIOXIDE 23 mmol/L (21-33); CHLORIDE 109 mmol/L (98-107); GFR AFRICAN-AMERICAN > 60; GLUCOSE,RANDOM 108 mg/dL (70-110); MAGNESIUM 2.2 mg/dL (1.7-2.2); POTASSIUM 3.7 mmol/L (3.6-5.0); SODIUM 144 mmol/L (132-148); TOTAL PROTEIN 6.5 g/dL (5.8-8.3)
--- NOTE | 2017-06-01 07:40 | CP.PCM.PN ---
Subjective - Date & Time of Evaluation Date of Evaluation: 06/01/17 Time of Evaluation: 07:37 - Subjective Subjective: Surgery Progress Note for Dr. Nunez HPI: Patient seen and examined at bedside. Pain in his left abdomen and flank have resolved. States he is urinating frequently with little pain. The color of his urine is clear. No nausea or vomiting. No other complaints at this time. Denies chest pain, SOB, Fever, Chills. Objective - Vital Signs/Intake and Output Vital Signs (last 24 hours): Temp Pulse Resp BP Pulse Ox 99 F 90 20 140/73 94 L 05/31/17 16:00 05/31/17 16:00 05/31/17 16:00 05/31/17 16:00 05/31/17 16:00 Intake and Output: 06/01/17 06/01/17 06:59 18:59 Intake Total 2039 Balance 2039 - Medications Medications: Current Medications Heparin Sodium (Porcine) (Heparin) 5,000 units SC Q8 STEVE PRN Reason: Protocol Last Admin: 06/01/17 05:39 Dose: 5,000 units Hydromorphone HCl (Dilaudid) 0.5 mg IVP Q4H PRN PRN Reason: Pain, moderate (4-7) Last Admin: 05/31/17 09:13 Dose: 0.5 mg Metronidazole (Flagyl) 500 mg in 100 mls @ 100 mls/hr IVPB Q8 STEVE PRN Reason: Protocol Last Admin: 06/01/17 05:38 Dose: 100 mls/hr Cefepime HCl 0.5 gm/ Sodium (Chloride) 100 mls @ 100 mls/hr IVPB Q8H STEVE PRN Reason: Protocol Stop: 06/02/17 19:59 Last Admin: 06/01/17 02:40 Dose: 100 mls/hr Sodium Chloride (Sodium Chloride 0.9%) 1,000 mls @ 125 mls/hr IV .Q8H STEVE Stop: 06/03/17 02:59 Last Admin: 06/01/17 05:43 Dose: 125 mls/hr Ketorolac Tromethamine (Toradol) 30 mg IVP Q6 STEVE Last Admin: 06/01/17 05:48 Dose: Not Given Levalbuterol HCl (Xopenex) 0.63 mg IH [id number] STEVE Last Admin: 06/01/17 03:10 Dose: 0.63 mg Nicotine (Nicoderm Cq) 1 patch TD DAILY [facility] Last Admin: 05/31/17 09:24 Dose: 1 patch Ondansetron HCl (Zofran Inj) 4 mg IVP Q4H PRN PRN Reason: Nausea/Vomiting Pantoprazole Sodium (Protonix Inj) 40 mg IVP DAILY [facility] Last Admin: 05/31/17 09:22 Dose: 40 mg - Labs Labs: 06/01/17 06:51 06/01/17 06:51 PT 11.2 Seconds (9.9-11.8) 05/30/17 16:10 INR 1.04 (0.93-1.08) 05/30/17 16:10 APTT 28.4 Seconds (23.7-30.8) 05/30/17 16:10 - Constitutional Appears: Well, Non-toxic, No Acute Distress - Head Exam Head Exam: ATRAUMATIC, NORMAL INSPECTION, NORMOCEPHALIC - Eye Exam Eye Exam: EOMI Pupil Exam: NORMAL ACCOMODATION - ENT Exam ENT Exam: Mucous Membranes Moist - Neck Exam Neck Exam: Normal Inspection - Respiratory Exam Respiratory Exam: Clear to Ausculation Bilateral, NORMAL BREATHING PATTERN - Cardiovascular Exam Cardiovascular Exam: REGULAR RHYTHM - GI/Abdominal Exam GI & Abdominal Exam: Soft, Normal Bowel Sounds. absent: Distended, Tenderness - Extremities Exam Extremities Exam: absent: Joint Swelling, Tenderness - Neurological Exam Neurological Exam: Alert, Awake, Oriented x3 - Psychiatric Exam Psychiatric exam: Normal Affect, Normal Mood - Skin Skin Exam: Dry, Intact, Normal Color, Warm Assessment and Plan - Assessment and Plan (Free Text) Assessment: 51M w/ Nephrolithiasis Plan: * No surgical intervention needed at this time * Patient ok for D/c per surgical standpoint Quentin Rodriguez PGY1
--- NOTE | 2017-06-01 11:51 | PN ---
DATE: 06/01/2017 SUBJECTIVE: The patient is lying in bed. He states that his left flank pain has essentially resolved. He denies any nausea, vomiting, fevers, or chills. OBJECTIVE: VITAL SIGNS: Reveal temperature of 98, blood pressure of 132/87, and heart rate of 69. HEENT: Reveal sclerae to be white. Conjunctivae pink. NECK: Supple. CHEST AND LUNGS: Clear. HEART: Reveals a regular rate and rhythm. ABDOMEN: Soft and nontender. No mass. EXTREMITIES: Show no edema. LABORATORY DATA: Revealed white blood cell count 5.2 and hemoglobin 14.6. Chemistries reveal normal electrolytes. ALT is 110 and AST is 46. Hepatitis serologies negative. IMPRESSION: 1. A 51-year-old male admitted to the hospital with left flank pain, I suspect that this is related to renal colic. The patient was seen by Urology. He does have some sigmoid diverticulosis with some nonspecific mural thickening. Clinically, this does not appear to be diverticulitis. 2. Elevated liver enzymes secondary to fatty liver seen on ultrasound and CAT scan. RECOMMENDATIONS: 1. The patient will need elective colonoscopy. He also needs Urology followup as an outpatient. 2. Weight loss for fatty liver. Bobby Magana MD
[2017-06-01] MEDS ORDERED: Oxycodone/Acetaminophen 5/325 mg Tab PO PRN (13:49)
--- NOTE | 2017-06-01 15:59 | PN ---
DATE: 06/01/2017 LOCATION: The patient is seen in room #370, bed #1. SUBJECTIVE: The patient is lying in the bed. The patient today morning stated that the patient developed increasing abdominal pain after eating ordered meal by the GI. The patient stated that his abdominal pain increased after eating meal. The patient denies any nausea or vomiting, denies any diarrhea. OBJECTIVE: VITAL SIGNS: T-max 99; heart rate 69 to 90 to 71; blood pressure 132/87, 140/73, 128/77; respiration 18; O2 sat 97% to 94%. HEAD EXAMINATION: Normocephalic and atraumatic. HEENT examination shows pink conjunctivae. Anicteric sclerae. No oropharyngeal lesion. Dry oral mucosa. NECK: No neck rigidity. CHEST EXAMINATION: Symmetrical. LUNGS EXAMINATION: Shows no rales, crackles or wheezing. ABDOMEN: Protuberant, distended. Positive left lower quadrant tenderness. Positive left periumbilical tenderness. No costovertebral angle tenderness. GENITALIA: Male. RECTAL EXAMINATION: Deferred. EXTREMITY: Shows no pitting edema, no calf tenderness, no Homans sign. NEUROLOGICALLY: The patient is alert, awake, responsive. He is able to move upper and lower extremities without assistance. Gait examination is independent. VASCULAR EXAMINATION: Palpable pulses. MUSCULOSKELETAL EXAMINATION: Shows a body mass index of greater than 36. DIAGNOSTICS: June 01, WBC 5.2, hemoglobin/hematocrit 14.6/42.9 and platelet 179. PT and PTT of 11.2 and 28.4. Sodium 144, potassium 3.7, chloride 109, CO2 of 23, anion gap 16, BUN 11, creatinine 0.9, GFR greater than 60, glucose 108, calcium 9.6. Magnesium 2.2. LFT shows ALT of 110, PSA of 1.1 and 1.6. Hepatitis A, B, C serologies are negative. Blood cultures, no growth. The patient had an echocardiogram, result pending. Abdominal ultrasound results noted. The patient seen by gastroenterology, urology and surgery. Their recommendations noted. IMPRESSION AND PLAN: 1. Left-sided acute rectosigmoid colonic diverticulitis and diverticulosis. 2. Nonobstructing 6-mm left renal calculus with mild left renal collecting system fullness. 3. Obesity with elevated body mass index of greater than 36. 4. Increasing recurrent left-sided abdominal pain, postprandial. 5. Nicotine dependence. 6. Granulocytosis. 7. Transaminitis. 8. Trace proteinuria, microscopic hematuria, bacteriuria, pyuria. 9. Morbid obesity. 10. Rectosigmoid diverticulitis and diverticulosis with mural thickening. 11. Hepatic steatosis with diffuse increased echogenicity of the liver parenchyma with distended gallbladder without cholelithiasis, without wall thickening, without pericholecystic fluid. 12. Nicotine dependence. 1. Acute rectosigmoid diverticulosis and diverticulitis. 2. Abdominal pain secondary to above. 3. Granulocytosis. 4. Transaminitis. 5. Trace proteinuria, microscopic hematuria, and bacteriuria. 6. Hepatosplenomegaly with liver size of greater than 21 cm with diffuse increased echogenicity of the liver parenchyma. 7. Distended gallbladder without gallstones and without gallbladder wall thickening and without pericholecystic fluid. 8. Mild splenomegaly. 9. Hepatic steatosis with diffuse increased echogenicity of the liver. 10. Obesity with elevated body mass index of 34. 1. Acute rectosigmoid colonic diverticulitis and diverticulosis. 2. Moderate hiatal hernia. 3. Hepatic steatosis with hepatomegaly. 4. Pancreatic fatty atrophy. 5. A 6-mm left renal calculus with mild left renal collecting system fullness. 6. Questionable small pericardial effusion. 7. Rectosigmoid colon diverticulosis. 8. Degenerative joint disease of the lumbar spine. 9. Fat containing umbilical hernia. 10. Hepatic steatosis with hyperattenuation of the liver with borderline hepatomegaly. 11. Possible trace fluid in the right fissure of the lung. 12. Morbid obesity with elevated body mass index of 36. 13. Questionable hypertension, transient. 11. Granulocytosis. 12. Mild hypercalcemia. 13. Transaminitis. 14. Trace proteinuria, hematuria, and bacteriuria. 15. His history of psoriasis, history of hair transplant, history of gastroesophageal reflux, history of questionable asthma, history of nicotine dependence, and history of dyslipidemia. PLAN: At this time, the patient is to be continued on IV fluid, IV antibiotics, serial labs. GI, surgery and urology followup has been ordered. The patient seen by urology, ordered urine cytology which is uncollected. The patient is on Dilaudid 0.5 mg IV q. 4 hours p.r.n. for severe pain, Flagyl 500 IV q. 8, heparin 5000 subQ q. 8, cefepime 500 mg IV q. 8, nicotine patch 21 mg daily, Protonix 40 mg IV daily, IV fluid 0.9 normal saline at 125 mL an hour. Surgery ordered Toradol [id number] and now, Toradol is changed to 30 mg IV q. 8 p.r.n. The patient is on Xopenex nebulizer every 6 hours, Zofran 4 mg IV q. 4 and incentive spirometry. Heart-healthy diet. The patient's pending reports are echocardiogram. The patient is to be continued on above therapeutic intervention as dictated. The patient has been advised out of bed ad santana. We will watch the patient on the present diet and see if the patient is able to tolerate. If the patient does not tolerate the diet due to increasing abdominal pain, the patient's diet will be titrated down. The patient updated about his condition, diagnoses, treatment plan and management plan at length. All questions concerned answered. Dictated and electronically signed, not read. Henri Villegas MD MTDD
--- NOTE | 2017-06-01 16:04 | CP.PCM.PCO ---
Physician Communication Note - Physician Communication Note Physician Communication Note: + BM this am/Pain Recurred 10:00am-Rx Liquids
--- NOTE | 2017-06-01 19:23 | CARD ---
APPROVED REPORT EXAM: Two-dimensional and M-mode echocardiogram with Doppler and color Doppler. INDICATION R/O PERICARDIAL EFFUSION 2D DIMENSIONS Left Atrium (2D)4.2 (1.6-4.0cm)IVSd1.3 (0.7-1.1cm) LVDd4.3 (3.9-5.9cm)PWd1.2 (0.7-1.1cm) LVDs2.7 (2.5-4.0cm)FS (%) 37.1 % LVEF (%)67.4 (>50%) M-Mode DIMENSIONS Aortic Root3.30 (2.2-3.7cm)Aortic Cusp Exc.1.90 (1.5-2.0cm) Aortic Valve AoV Peak Pcrnvody174.0cm/Su Peak GR.9mmHgLVOT Peak Ikebgcks414.0cm/s LVOT VTI26.60cm Mitral Valve MV E Ezdduruq29.7cm/sMV A Dnqurhpk23.8cm/sE/A ratio1.2 TDI Lateral E' Peak V9.65cm/sMedial E' Peak V8.58cm/sE/Lateral E'7.7 E/Medial E'8.7 Pulmonary Valve PV Peak Mwhmgjnq061.0cm/sPV Peak Grad.5mmHg Tricuspid Valve TR Peak Xwndazgf700hm/sRAP [id number] Peak Gr.24mmHg [id number] LEFT VENTRICLE The left ventricle is normal size. There is mild concentric left ventricular hypertrophy. The left ventricular function is normal.EF-65% There is normal LV segmental wall motion. Transmitral Doppler flow pattern is Grade II-pseudonormal filling dynamics. No left ventricle thrombus noted on this study. There is no ventricular septal defect visualized. There is no left ventricular aneurysm. There is no mass noted in the left ventricle. RIGHT VENTRICLE The right ventricle is normal size. There is normal right ventricular wall thickness. The right ventricular systolic function is normal. ATRIA The left atrium is mildly dilated. The right atrium size is normal. The interatrial septum is intact with no evidence for an atrial septal defect. AORTIC VALVE The aortic valve is thickened but opens well. There is trace to mild aortic regurgitation. There is no aortic valvular stenosis. There is no aortic valvular vegetation. MITRAL VALVE The mitral valve is thickened but opens well. Mitral regurgitation is trace. There is no mitral valve stenosis. There is no evidence of mitral valve prolapse. TRICUSPID VALVE The tricuspid valve leaflets are thickened , but open well. There is trace tricuspid regurgitation.RVSP-34 mmof hg. There is no tricuspid valve stenosis. There is no tricuspid valve prolapse or vegetation. GREAT VESSELS The aortic root is normal in size. The ascending aorta is normal in size. The pulmonary artery is normal. The IVC is normal in size and collapses >50% with inspiration. PERICARDIAL EFFUSION There is no pleural effusion. There is a trace pericardial effusion. <Conclusion> The left ventricle is normal size. There is mild concentric left ventricular hypertrophy. The left ventricular function is normal.EF-65% There is normal LV segmental wall motion. There is trace to mild aortic regurgitation. Mitral regurgitation is trace. There is trace tricuspid regurgitation.RVSP-34 mmof hg.
[2017-06-02] MEDS: Levalbuterol 0.63 MG/3 ML Inhal Soln UD IH SCH ×4 (03:00→22:02)
[2017-06-02] MEDS: Cefepime 0.5 GM in Sodium Chloride 0.9% 100 ML IVPB SCH ×2 (03:30→11:38)
[2017-06-02] MEDS: metroNIDAZOLE IV 500 mg/100 ml 500 MG/100 ML BAG IVPB SCH ×3 (06:18→22:04)
[2017-06-02 06:39] LABS: BASO # 0.02 K/mm3 (0.0-2.0); BASO % 0.4 % (0.0-3.0); EOS # 0.2 (0.0-0.7); EOS % 3.3 % (1.5-5.0); GRAN # 2.88 (1.4-6.5); GRAN % 52.4 % (50.0-68.0); HEMATOCRIT 43.6 % (42.0-52.0); LYMPH % 36.2 % (22.0-35.0); MEAN CELL VOLUME 89.5 fl (80.0-105.0); MEAN CORPUSCULAR HGB CONC 34.6 g/dl (31.0-37.0); MONO # 0.4 (0.1-0.6); MONO % 7.7 % (1.0-6.0); RED CELL DISTRIBUTION WIDTH 13.2 % (11.5-14.5); WHITE BLOOD COUNT 5.5 10^3/ul (4.5-11.0)
[2017-06-02 07:00] VITALS: RESP 20
[2017-06-02 07:07] LABS: ALB/GLOB RATIO 1.5 (1.1-1.8); ALKALINE PHOSPHATASE 87 U/L (38-126); ALT/SGPT 104 U/L (7-56); AST/SGOT 48 U/L (17-59); BILIRUBIN,DIRECT 0.4 mg/dL (0.0-0.4); BILIRUBIN,TOTAL 0.6 mg/dL (0.2-1.3); BLOOD UREA NITROGEN 10 mg/dL (7-21); CALCIUM 9.9 mg/dL (8.4-10.5); CARBON DIOXIDE 24 mmol/L (21-33); CHLORIDE 108 mmol/L (98-107); GFR AFRICAN-AMERICAN > 60; GLUCOSE,RANDOM 101 mg/dL (70-110); MAGNESIUM 2.1 mg/dL (1.7-2.2); POTASSIUM 3.8 mmol/L (3.6-5.0); SODIUM 142 mmol/L (132-148); TOTAL PROTEIN 6.6 g/dL (5.8-8.3)
[2017-06-02] MEDS: Sodium Chloride 0.9% 1,000 ML IV SCH ×2 (09:44→23:55)
--- NOTE | 2017-06-02 10:51 | CP.PCM.PCO ---
Physician Communication Note - Physician Communication Note Physician Communication Note: No Pain-Rx: Low residue diet/BP Rx
--- NOTE | 2017-06-02 14:34 | CP.PCM.PN ---
Subjective - Date & Time of Evaluation Date of Evaluation: 06/02/17 Time of Evaluation: 14:31 - Subjective Subjective: Surgery Progress Note for Dr. Nunez HPI: Patient seen and examined at bedside. Has not complained of any abdominal pain since yesterday. Patient is tolerating diet and wants to go home. Denies N/ V/D/F/CP/SOB Objective - Vital Signs/Intake and Output Vital Signs (last 24 hours): Temp Pulse Resp BP Pulse Ox 97.8 F 67 20 136/98 H 98 06/02/17 08:30 06/02/17 08:30 06/02/17 08:30 06/02/17 08:30 06/02/17 08:30 Intake and Output: 06/02/17 06/02/17 06:59 18:59 Intake Total 1420 0 Balance 1420 0 - Medications Medications: Current Medications Clonidine HCl (Catapres) 0.1 mg PO Q6H PRN PRN Reason: Systolic Blood Pressure Heparin Sodium (Porcine) (Heparin) 5,000 units SC Q8 STEVE PRN Reason: Protocol Last Admin: 06/02/17 06:21 Dose: 5,000 units Hydromorphone HCl (Dilaudid) 0.5 mg IVP Q4H PRN PRN Reason: Pain, moderate (4-7) Last Admin: 05/31/17 09:13 Dose: 0.5 mg Metronidazole (Flagyl) 500 mg in 100 mls @ 100 mls/hr IVPB Q8 STEVE PRN Reason: Protocol Last Admin: 06/02/17 06:18 Dose: 100 mls/hr Cefepime HCl 0.5 gm/ Sodium (Chloride) 100 mls @ 100 mls/hr IVPB Q8H STEVE PRN Reason: Protocol Stop: 06/02/17 19:59 Last Admin: 06/02/17 11:38 Dose: 100 mls/hr Sodium Chloride (Sodium Chloride 0.9%) 1,000 mls @ 100 mls/hr IV .Q10H [facility] Stop: 06/04/17 02:59 Last Admin: 06/02/17 09:44 Dose: 100 mls/hr Ketorolac Tromethamine (Toradol) 30 mg IVP Q8 PRN PRN Reason: Pain, moderate (4-7) Levalbuterol HCl (Xopenex) 0.63 mg IH [id number] [facility] Last Admin: 06/02/17 13:26 Dose: 0.63 mg Nicotine (Nicoderm Cq) 1 patch TD DAILY [facility] Last Admin: 06/02/17 09:43 Dose: 1 patch Ondansetron HCl (Zofran Inj) 4 mg IVP Q4H PRN PRN Reason: Nausea/Vomiting Oxycodone/Acetaminophen (Percocet 5/325 Mg Tab) 2 tab PO Q4H PRN PRN Reason: Pain, Mild (1-3) Stop: 06/04/17 13:50 Pantoprazole Sodium (Protonix Inj) 40 mg IVP DAILY [facility] Last Admin: 06/02/17 09:43 Dose: 40 mg - Labs Labs: 06/02/17 06:00 06/02/17 06:00 PT 11.2 Seconds (9.9-11.8) 05/30/17 16:10 INR 1.04 (0.93-1.08) 05/30/17 16:10 APTT 28.4 Seconds (23.7-30.8) 05/30/17 16:10 - Constitutional Appears: Well, Non-toxic, No Acute Distress - Head Exam Head Exam: ATRAUMATIC, NORMAL INSPECTION, NORMOCEPHALIC - Eye Exam Eye Exam: EOMI - ENT Exam ENT Exam: Mucous Membranes Moist - Respiratory Exam Respiratory Exam: Clear to Ausculation Bilateral - Cardiovascular Exam Cardiovascular Exam: REGULAR RHYTHM - GI/Abdominal Exam Additional comments: Patients abdomen is soft, non-tender, non-distended and normal bowel sounds were heard in all four quadrants - Extremities Exam Extremities Exam: absent: Joint Swelling, Tenderness - Neurological Exam Neurological Exam: Alert, Awake, Oriented x3 - Psychiatric Exam Psychiatric exam: Normal Affect, Normal Mood Assessment and Plan - Assessment and Plan (Free Text) Assessment: 51M w/ Nephrolithiasis Plan: * no surgical intervention needed at this time * low residue diet * pain control * Serial abdominal exams * further reccs per Dr. Enrique Rodriguez PGY1
[2017-06-02 16:55] VITALS: PULSE 79
--- NOTE | 2017-06-02 20:37 | PN ---
DATE: 06/02/2017 SUBJECTIVE: The patient apparently had some recurrence of left upper quadrant abdominal pain after being started on a diet yesterday. He denies any abdominal pain this morning. He denies any fevers or chills. PHYSICAL EXAMINATION: VITAL SIGNS: Reveal temperature of 98.4, blood pressure 130/91, heart rate of 80. HEENT: Reveal sclerae to be white. Conjunctivae pink. NECK: Supple. CHEST/LUNGS: Clear. HEART: Exam reveals a regular rate and rhythm. ABDOMEN: Soft, nontender. EXTREMITIES: Show no edema. LABORATORY DATA: Revealed white blood cell count 5.5, hemoglobin 15.1. Chemistries reveal chloride of 108, AST 48, ALT down to 104. PSA is normal. HIV serology is negative. IMPRESSION: This 51-year-old male, admitted to the hospital with left upper quadrant and left flank pain. CT scan of the abdomen shows a small stone in the left renal pelvis with some dilatation of the left renal pelvis as well as microscopic hematuria on urinalysis. Suspected the symptoms are related to renal colic. CT scan of the abdomen shows mild diverticulosis with mural thickening in the sigmoid colon. This area is not the area where the patient is complaining of pain. He did have a colonoscopy approximately three years ago. RECOMMENDATIONS: 1. Advance diet as tolerated. 2. Urology followup. Bobby Magana MD
--- NOTE | 2017-06-02 20:43 | PN ---
DATE: 06/02/2017 LOCATION: The patient is seen in room 370, bed 1. SUBJECTIVE: The patient is lying in the bed. The patient's partner is at bedside. Overnight nurse's notes were reviewed. The patient's blood pressure was elevated last evening while systolic blood pressure was around 170 systolic, diastolic was above 100. The patient was started and given clonidine p.r.n. 0.1 mg. The patient's today's blood pressure systolic around 130s and diastolic in 90s. The patient was asymptomatic throughout the elevated blood pressure. At present, the patient is seen today lying in the bed. 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 OBJECTIVE: VITAL SIGNS: The patient's today's vital signs were noted. Last blood pressure systolic 130s and diastolic around 90s. The patient is afebrile. Heart rate around 84, 78, 82. Respirations 18-20. O2 sat in mid to high 90s. HEAD: The patient's head examination normocephalic, atraumatic. EENT: Examination shows pink conjunctivae. Anicteric sclerae. No oropharyngeal lesion. No neck rigidity. CHEST: Examination symmetrical. LUNG: Examination shows no rales, crackles or wheezing. CARDIOVASCULAR: S1, S2, regular rhythm. ABDOMEN: Abdominal examination shows very minimal tenderness in the left lower quadrant and lower left periumbilical area. No rebound tenderness. Mild voluntary guarding noted. No rebound tenderness noted. Positive bowel sounds noted. GENITALIA: Male. RECTAL: Examination deferred. EXTREMITIES: Shows no pitting edema, no calf tenderness, no Song's signs. There is no costovertebral angle tenderness noted. MUSCULOSKELETAL: Examination shows an elevated body mass index. DIAGNOSTIC DATA: Including CBC, CMP, LFTs reviewed. The patient has elevated ALT which has been trending up and down. The patient and the patient's partner was explained about the patient's diagnosis and recommendations and evaluations by the Urology, Surgery, Gastroenterology was all explained to the patient and the patient's partner in the layman's language. The patient was also advised and explained that his most likely and most probable clinical condition is secondary to his diverticulitis which is also confirmed yesterday by the patient's advancing diet when the patient developed increased abdominal pain after diet advancement which is more suggestive of acute diverticulitis rather than kidney stones. The patient's partner has already spoken to Dr. Puentes from Urology, the discussion between his partner and the urology is unknown to me at present. The patient has expressed his interest in leaving the hospital. I have explained to the patient that at present we need to gradually increase the diet and see if the patient tolerates the diet without any increasing abdominal pain or any other GI related symptoms and if the patient is able to tolerate the diet without any symptoms of abdominal pain and other related GI symptoms, the patient will be considered for discharge very soon in the next 24 hours if above criteria is met. The patient also has expressed his interest in leaving the hospital. I have advised the patient against signing AMA. The patient was advised and the patient's partner was explained about the complications, consequences of the diverticulitis and also kidney stone. All of the above was explained to the patient and the patient's partner in layman's language. I have also advised the patient and the patient's partner to relieve his medical records upon discharge to all the physician who have provided care to the patient in the past and present, including his medical doctor, concrete stone fabricating supervisor, etc., and seek further opinion and treatment plan upon discharge with them. I have also asked the patient if he wishes to follow up with me upon discharge. The decision will be up to the patient and his partner. IMPRESSION: 1. Acute slow resolving questionable rebound, acute diverticulitis of the rectosigmoid area with mural thickening and inflammation. 2. History of diverticulitis. 3. Diverticulosis. 4. Transiently uncontrolled hypertension. 5. Morbid obesity. 6. A 6-mm left nonobstructing nephrolithiasis. 7. Transaminitis. 8. History of right ankle fracture and open reduction internal fixation. 1. Left-sided acute rectosigmoid colonic diverticulitis and diverticulosis. 2. Nonobstructing 6-mm left renal calculus with mild left renal collecting system fullness. 3. Obesity with elevated body mass index of greater than 36. 4. Increasing recurrent left-sided abdominal pain, postprandial. 5. Nicotine dependence. 6. Granulocytosis. 7. Transaminitis. 8. Trace proteinuria, microscopic hematuria, bacteriuria, pyuria. 9. Morbid obesity. 10. Rectosigmoid diverticulitis and diverticulosis with mural thickening. 11. Hepatic steatosis with diffuse increased echogenicity of the liver parenchyma with distended gallbladder without cholelithiasis, without wall thickening, without pericholecystic fluid. 12. Nicotine dependence. 1. Acute rectosigmoid diverticulosis and diverticulitis. 2. Abdominal pain secondary to above. 3. Granulocytosis. 4. Transaminitis. 5. Trace proteinuria, microscopic hematuria, and bacteriuria. 6. Hepatosplenomegaly with liver size of greater than 21 cm with diffuse increased echogenicity of the liver parenchyma. 7. Distended gallbladder without gallstones and without gallbladder wall thickening and without pericholecystic fluid. 8. Mild splenomegaly. 9. Hepatic steatosis with diffuse increased echogenicity of the liver. 10. Obesity with elevated body mass index of 34. 1. Acute rectosigmoid colonic diverticulitis and diverticulosis. 2. Moderate hiatal hernia. 3. Hepatic steatosis with hepatomegaly. 4. Pancreatic fatty atrophy. 5. A 6-mm left renal calculus with mild left renal collecting system fullness. 6. Questionable small pericardial effusion. 7. Rectosigmoid colon diverticulosis. 8. Degenerative joint disease of the lumbar spine. 9. Fat containing umbilical hernia. 10. Hepatic steatosis with hyperattenuation of the liver with borderline hepatomegaly. 11. Possible trace fluid in the right fissure of the lung. 12. Morbid obesity with elevated body mass index of 36. 13. Questionable hypertension, transient. 11. Granulocytosis. 12. Mild hypercalcemia. 13. Transaminitis. 14. Trace proteinuria, hematuria, and bacteriuria. 15. His history of psoriasis, history of hair transplant, history of gastroesophageal reflux, history of questionable asthma, history of nicotine dependence, and history of dyslipidemia. PLAN: At this time, the patient is to be seen by surgery. The patient is followed up by Surgery, Gastroenterology and Urology. The above specialties are on consult with the patient. At present, the patient will be continued on IV fluid which has been decreased. The patient will be continued on IV antibiotics, FFP and Flagyl. The patient will be continued on IV, parenteral, oral and pain medications. The patient will be continued on intravenous antiemetic. The patient will be continued on GI and DVT prophylaxis.. After explaining all the above, I have asked in the end of my conversation if the patient and the partner had any other questions, which they stated that no further question or explanation was needed. The above patient was seen with medical administrative specialist. Dictated and electronically signed, not read. Henri Villegas MD MTDAmanda
[2017-06-03] MEDS: Levalbuterol 0.63 MG/3 ML Inhal Soln UD IH SCH ×2 (02:00→07:26)
[2017-06-03] MEDS: metroNIDAZOLE IV 500 mg/100 ml 500 MG/100 ML BAG IVPB SCH (05:45)
[2017-06-03] MEDS ORDERED: Pantoprazole 40 mg EC Tab PO SCH (06:00)
[2017-06-03 06:25] LABS: BASO # 0.02 K/mm3 (0.0-2.0); BASO % 0.3 % (0.0-3.0); EOS # 0.2 (0.0-0.7); EOS % 3.3 % (1.5-5.0); GRAN # 3.68 (1.4-6.5); GRAN % 57.9 % (50.0-68.0); HEMATOCRIT 43.8 % (42.0-52.0); MEAN CELL VOLUME 89.8 fl (80.0-105.0); MEAN CORPUSCULAR HEMOGLOBIN 31.6 pg (25.0-35.0); MEAN CORPUSCULAR HGB CONC 35.2 g/dl (31.0-37.0); MONO # 0.4 (0.1-0.6); MONO % 6.5 % (1.0-6.0); RED CELL DISTRIBUTION WIDTH 13.1 % (11.5-14.5); WHITE BLOOD COUNT 6.4 10^3/ul (4.5-11.0)
[2017-06-03 06:38] LABS: ALB/GLOB RATIO 1.5 (1.1-1.8); ALKALINE PHOSPHATASE 92 U/L (38-126); ALT/SGPT 115 U/L (7-56); AST/SGOT 52 U/L (17-59); BILIRUBIN,DIRECT 0.5 mg/dL (0.0-0.4); BILIRUBIN,TOTAL 0.7 mg/dL (0.2-1.3); BLOOD UREA NITROGEN 15 mg/dL (7-21); CARBON DIOXIDE 24 mmol/L (21-33); CHLORIDE 107 mmol/L (95-110); GFR AFRICAN-AMERICAN > 60; GLUCOSE,RANDOM 100 mg/dL (70-110); MAGNESIUM 2.1 mg/dL (1.7-2.2); POTASSIUM 3.9 mmol/L (3.6-5.0); SODIUM 141 mmol/L (132-148); TOTAL PROTEIN 6.8 g/dL (5.8-8.3)
--- NOTE | 2017-06-03 06:52 | CARD ---
APPROVED REPORT EKG Measurement Heart [id number] <Conclusion> Normal sinus rhythm Normal ECG
[2017-06-03 06:54] VITALS: TEMP 98.7; O2SAT 96
[2017-06-03 08:25] VITALS: BP 135/94
--- NOTE | 2017-06-03 08:55 | CP.PCM.PN ---
Subjective - Date & Time of Evaluation Date of Evaluation: 06/03/17 Time of Evaluation: 08:53 - Subjective Subjective: Surgery Pt s&e. NAEON. Denies pain/F/C/N/V/D. + amb. Tolerating diet. + void. Objective - Vital Signs/Intake and Output Vital Signs (last 24 hours): Temp Pulse Resp BP Pulse Ox 98.7 F 79 20 135/94 H 96 06/03/17 08:24 06/03/17 08:24 06/03/17 08:24 06/03/17 08:24 06/03/17 08:24 Intake and Output: 06/03/17 06/03/17 06:59 18:59 Intake Total 1080 Balance 1080 - Medications Medications: Current Medications Clonidine HCl (Catapres) 0.1 mg PO Q6H PRN PRN Reason: Systolic Blood Pressure Heparin Sodium (Porcine) (Heparin) 5,000 units SC Q8 STEVE PRN Reason: Protocol Last Admin: 06/03/17 05:45 Dose: 5,000 units Hydromorphone HCl (Dilaudid) 0.5 mg IVP Q4H PRN PRN Reason: Pain, moderate (4-7) Last Admin: 05/31/17 09:13 Dose: 0.5 mg Metronidazole (Flagyl) 500 mg in 100 mls @ 100 mls/hr IVPB Q8 STEVE PRN Reason: Protocol Last Admin: 06/03/17 05:45 Dose: 100 mls/hr Sodium Chloride (Sodium Chloride 0.9%) 1,000 mls @ 100 mls/hr IV .Q10H [facility] Stop: 06/04/17 02:59 Last Admin: 06/02/17 23:55 Dose: 100 mls/hr Ketorolac Tromethamine (Toradol) 30 mg IVP Q8 PRN PRN Reason: Pain, moderate (4-7) Levalbuterol HCl (Xopenex) 0.63 mg IH [id number] [facility] Last Admin: 06/03/17 07:26 Dose: 0.63 mg Nicotine (Nicoderm Cq) 1 patch TD DAILY [facility] Last Admin: 06/02/17 09:43 Dose: 1 patch Ondansetron HCl (Zofran Inj) 4 mg IVP Q4H PRN PRN Reason: Nausea/Vomiting Oxycodone/Acetaminophen (Percocet 5/325 Mg Tab) 2 tab PO Q4H PRN PRN Reason: Pain, Mild (1-3) Stop: 06/04/17 13:50 Pantoprazole Sodium (Protonix Ec Tab) 40 mg PO 0600 STEVE Last Admin: 06/03/17 06:52 Dose: 40 mg - Labs Labs: 06/03/17 05:40 06/03/17 05:40 PT 11.2 Seconds (9.9-11.8) 05/30/17 16:10 INR 1.04 (0.93-1.08) 05/30/17 16:10 APTT 28.4 Seconds (23.7-30.8) 05/30/17 16:10 - Constitutional Appears: No Acute Distress - Head Exam Head Exam: ATRAUMATIC, NORMAL INSPECTION, NORMOCEPHALIC - Eye Exam Eye Exam: EOMI, Normal appearance, PERRL Pupil Exam: NORMAL ACCOMODATION, PERRL - ENT Exam ENT Exam: Mucous Membranes Moist, Normal Exam - Neck Exam Neck Exam: Full ROM, Normal Inspection. absent: Lymphadenopathy - Respiratory Exam Respiratory Exam: Clear to Ausculation Bilateral, NORMAL BREATHING PATTERN - Cardiovascular Exam Cardiovascular Exam: REGULAR RHYTHM, +S1, +S2. absent: Murmur - GI/Abdominal Exam GI & Abdominal Exam: Soft, Normal Bowel Sounds. absent: Distended, Firm, Guarding, Rigid, Tenderness - Extremities Exam Extremities Exam: Full ROM, Normal Capillary Refill, Normal Inspection. absent : Joint Swelling, Pedal Edema - Back Exam Back Exam: NORMAL INSPECTION - Neurological Exam Neurological Exam: Alert, Awake, CN II-XII Intact, Normal Gait, Oriented x3 - Psychiatric Exam Psychiatric exam: Normal Affect, Normal Mood - Skin Skin Exam: Dry, Intact, Normal Color, Warm Assessment and Plan - Assessment and Plan (Free Text) Assessment: Diveritculitis, Nephrolithiasis Plan: * no surgical intervention needed at this time * low residue diet * pain control * Ok to DC for surgical standpoint OLIVIA Nunez
[2017-06-03] MEDS: Sodium Chloride 0.9% 1,000 ML IV SCH (09:33)
--- NOTE | 2017-06-03 10:28 | CP.PCM.PCO ---
Physician Communication Note - Physician Communication Note Physician Communication Note: Asymptomatic-mary diet-moving bowels/OPD Follow Up
--- NOTE | 2017-06-03 15:19 | PN ---
DATE: 06/03/2017 SUBJECTIVE: The patient is lying in bed. He denies any further abdominal pain. He denies hematuria. He is tolerating solid foods. PHYSICAL EXAMINATION: VITAL SIGNS: Reveal temperature of 98.7, blood pressure of 135/94, heart rate of 80. HEENT: Reveal sclerae to be white. Conjunctivae pink. NECK: Supple. CHEST: Lungs clear. HEART: Exam reveals regular rate and rhythm. ABDOMEN: Soft, nontender. No mass. EXTREMITIES: Show no edema. LABORATORY DATA: Reveal white blood cell count 6.4, hemoglobin 15.4. Electrolytes are normal. IMPRESSION: 1. Left upper quadrant and left flank pain probably secondary to renal colic. 2. Diverticulosis with nonspecific mural thickening of the sigmoid colon. The patient did have a colonoscopy approximately 3 years ago. RECOMMENDATIONS: Continue low-residue diet. He is to follow up with his primary medical care doctor on the outside. He is stable from a GI standpoint. Bobby Magana MD
--- NOTE | 2017-06-03 22:27 | DS ---
FINAL PROGRESS NOTE AND DISCHARGE SUMMARY LOCATION: The patient is seen in room #373, bed #3. SUBJECTIVE: The patient is ambulating in the room. The patient is comfortable. The patient has tolerated the diet without any adverse event. There were no adverse events documented overnight by overnight nurse's note. The patient denies any abdominal pain. The patient denies any nausea or vomiting. The patient reports good bowel movement today. PHYSICAL EXAMINATION: VITAL SIGNS: T-max 98.7; pulse 79; blood pressure 130/91, 135/94, 136/98; respiration 20; O2 sat 96% to 98%. HEENT: Head examination is normocephalic and atraumatic. HEENT examination shows pinkish pale conjunctivae, anicteric sclerae. NECK: No neck rigidity. CHEST EXAMINATION: Kyphosis. LUNGS EXAMINATION: Shows no rales, crackles or wheezing. CARDIOVASCULAR EXAMINATION: S1 and S2, regular rhythm. ABDOMEN: Soft, protuberant. Positive bowel sounds. No costovertebral angle tenderness. There is absolutely no guarding on the left periumbilical, left lower quadrant area. No rebound tenderness. GENITALIA: Male. RECTAL: Examination is deferred. EXTREMITIES: Shows no pitting edema, no calf tenderness, no Homans' sign. NEUROLOGICALLY: The patient is alert, awake, oriented x3. Gait examination is independent. VASCULAR EXAMINATION: Palpable pulses. Plantars are downward. DTRs at 2+. DIAGNOSTICS: June 03, WBC 6.4, hemoglobin and hematocrit of 15.4 and 43.8, platelet 199. Sodium 141, potassium 3.9, chloride 107, CO2 of 24, anion gap 14, BUN 15, creatinine 0.8, GFR greater than 60, glucose 100, calcium 10.0. ALT 15. HIV and hepatitis A, B, C serologies negative. Blood cultures negative. The patient Is seen by surgery. The patient is asymptomatic, tolerated diet, moving bowels. Outpatient followup advised by the surgery. The patient is seen by gastroenterology, cleared for discharge. FINAL IMPRESSION, PLAN AND DISCHARGE DIAGNOSES: 1. Acute rectosigmoid area diverticulitis with mural thickening and inflammation. 2. History of diverticulosis and diverticulitis. 3. Questionable and possible hypertension. 4. Granulocytosis. 5. Transaminitis, resolving. 6. Proteinuria, microscopic hematuria, bacteriuria. 7. Morbid obesity with elevated body mass index of 37. 8. Hepatomegaly with liver size of 21 cm with increased echogenicity of the liver parenchyma, consistent with hepatic steatosis. 9. Hepatosplenomegaly. 10. Small pericardial effusion on the CT scan. 11. Moderate hiatal hernia. 12. Pancreatic fatty atrophy. 13. Nonobstructing, 6-mm left renal calculus with fullness of the left renal collecting system. 14. Acute rectosigmoid colon diverticulitis and diverticulosis. 15. Degenerative joint disease of the spine. 16. Fat-containing umbilical hernia. 17. Left ventricular ejection fraction of 67%. 18. Concentric left ventricular hypertrophy. 19. Thickened aortic valve with mild aortic regurgitation. 20. Thickened mitral valve with trace mitral regurgitation. 21. Trace tricuspid regurgitation. 22. Trace pericardial effusion. 23. History of dyslipidemia, gastroesophageal reflux, history of questionable asthma, history of nicotine dependence and alcohol use. 1. Acute slow resolving questionable rebound, acute diverticulitis of the rectosigmoid area with mural thickening and inflammation. 2. History of diverticulitis. 3. Diverticulosis. 4. Transiently uncontrolled hypertension. 5. Morbid obesity. 6. A 6-mm left nonobstructing nephrolithiasis. 7. Transaminitis. 8. History of right ankle fracture and open reduction internal fixation. 1. Left-sided acute rectosigmoid colonic diverticulitis and diverticulosis. 2. Nonobstructing 6-mm left renal calculus with mild left renal collecting system fullness. 3. Obesity with elevated body mass index of greater than 36. 4. Increasing recurrent left-sided abdominal pain, postprandial. 5. Nicotine dependence. 6. Granulocytosis. 7. Transaminitis. 8. Trace proteinuria, microscopic hematuria, bacteriuria, pyuria. 9. Morbid obesity. 10. Rectosigmoid diverticulitis and diverticulosis with mural thickening. 11. Hepatic steatosis with diffuse increased echogenicity of the liver parenchyma with distended gallbladder without cholelithiasis, without wall thickening, without pericholecystic fluid. 12. Nicotine dependence. 1. Acute rectosigmoid diverticulosis and diverticulitis. 2. Abdominal pain secondary to above. 3. Granulocytosis. 4. Transaminitis. 5. Trace proteinuria, microscopic hematuria, and bacteriuria. 6. Hepatosplenomegaly with liver size of greater than 21 cm with diffuse increased echogenicity of the liver parenchyma. 7. Distended gallbladder without gallstones and without gallbladder wall thickening and without pericholecystic fluid. 8. Mild splenomegaly. 9. Hepatic steatosis with diffuse increased echogenicity of the liver. 10. Obesity with elevated body mass index of 34. 1. Acute rectosigmoid colonic diverticulitis and diverticulosis. 2. Moderate hiatal hernia. 3. Hepatic steatosis with hepatomegaly. 4. Pancreatic fatty atrophy. 5. A 6-mm left renal calculus with mild left renal collecting system fullness. 6. Questionable small pericardial effusion. 7. Rectosigmoid colon diverticulosis. 8. Degenerative joint disease of the lumbar spine. 9. Fat containing umbilical hernia. 10. Hepatic steatosis with hyperattenuation of the liver with borderline hepatomegaly. 11. Possible trace fluid in the right fissure of the lung. 12. Morbid obesity with elevated body mass index of 36. 13. Questionable hypertension, transient. 11. Granulocytosis. 12. Mild hypercalcemia. 13. Transaminitis. 14. Trace proteinuria, hematuria, and bacteriuria. 15. His history of psoriasis, history of hair transplant, history of gastroesophageal reflux, history of questionable asthma, history of nicotine dependence, and history of dyslipidemia. At this time, the patient has been cleared by GI, urology and surgery. The patient will be discharged home on following medications. The patient will be discharged home on ciprofloxacin 500 mg twice a day, Dexilant 60 mg daily, Flagyl 500 three times a day and Percocet 5/325 one tablet q. 8 p.r.n. These are the patient's present discharge medications plus the patient is to resume his own home medications at home. The patient may be discharged home. DISCHARGE FOLLOWUP: With PMD, the patient has own patient observer and urologist within 1 week. The patient was advised to release all records from this hospitalization to PMD, patient observer and urologist. The patient's diet is low residue, high fiber, low salt, heart-healthy diet. upon discharge. The patient is advised weight loss to a BMI less than 30. During this hospitalization and even on the day of discharge, the patient was extensively explained about his diagnostic test results, his medical diagnoses, medical condition, need for close outpatient followup, need for outpatient gastroenterology and urology followup. The patient was advised weight loss. The patient was advised outpatient blood pressure monitoring. The patient was advised close followup with PMD, gastroenterology and urology. Time spent in the entire discharge process is more than 45 minutes. Dictated and electronically signed, not read. Henri Villegas MD TOM[facility]
== END 2017-06-03 12:49 | disposition home or self-care (01) | DRG 392 ==
LOC: ED 14:55 → ERH 18:57 → 3RSO 20:17
PROVIDERS: ADMIT Internal Medicine; ATTEND Internal Medicine
PROC: 3E0F7GC Introduction of Other Therapeutic Substance into Respiratory Tract, Via Natural or Artificial Opening (ICD-10-PCS; principal; 2017-05-30)
DX: K57.32 Diverticulitis of large intestine without perforation or abscess without bleeding (principal); I31.3 Pericardial effusion (noninflammatory); K76.0 Fatty (change of) liver, not elsewhere classified; E66.01 Morbid (severe) obesity due to excess calories; R16.2 Hepatomegaly with splenomegaly, not elsewhere classified; E83.52 Hypercalcemia; R80.9 Proteinuria, unspecified; K21.9 Gastro-esophageal reflux disease without esophagitis; K59.00 Constipation, unspecified; L40.9 Psoriasis, unspecified; E78.00 Pure hypercholesterolemia, unspecified; N20.0 Calculus of kidney; M47.26 Other spondylosis with radiculopathy, lumbar region; I35.1 Nonrheumatic aortic (valve) insufficiency; I10 Essential (primary) hypertension; J45.909 Unspecified asthma, uncomplicated; F17.210 Nicotine dependence, cigarettes, uncomplicated; K42.9 Umbilical hernia without obstruction or gangrene; K44.9 Diaphragmatic hernia without obstruction or gangrene; Z68.37 Body mass index [BMI] 37.0-37.9, adult; Z79.51 Long term (current) use of inhaled steroids